=== PATIENT | male | born 1945 | race Caucasian/White ===

== ENCOUNTER 2024-02-13 16:26 | Inpatient (IN) | payer MEDICARE, SELFPAY ==
[2024-02-13] VITALS (73 sets, daily range): BP systolic 57–131; BP diastolic 46–95; BMI 19.2
[2024-02-13] MEDS: ADRENALIN 250 IV (13:20)
[2024-02-13 13:21] LABS: % Basophils 0.4 % (0-2); % Eosinophils 0.4 % (0-6); % Lymphocytes 10.3 % (20.5-51.1); % Monocytes 14.7 % (1.7-9.3); % Neutrophils 72.2 % (42.2-75.2); Absolute Immature Granulocytes 0.2 10^3/uL (0-0.05); Absolute Lymphocytes 0.8 10^3/uL (1.2-3.4); Absolute Monocytes 1.1 10^3/uL (0.1-0.6); Absolute Neutrophils 5.3 10^3/uL (1.4-6.5); Hematocrit 34.8 % (39.0-52.0); Hemoglobin 10.5 g/dL (13.0-18.0); Mean Corp Hgb Conc. 30.2 g/dL (33.0-37.0); Mean Corpuscular Hgb 24.9 pg (27.0-31.0); Mean Corpuscular Volume 82.7 fL (80.0-94.0); Mean Platelet Volume 10.7 fL (7.4-10.4); Nucleated Red Blood Cells % 0 % (-); Platelet Count 196 10^3/uL (130-400); Red Blood Cell Count 4.21 10^6/uL (4.70-6.10); Red Cell Dist. Width 15.6 % (11.5-14.5); White Blood Cell Count 7.4 10^3/uL (4.8-10.8)
--- NOTE | 2024-02-13 13:21 | CON.CAR ---
Consultation
Consultation Request
Date/Time Consultation Requested: 02-13-24, 1250pm
Date/Time Consultation Performed: 02-13-24, 1:10 PM
Requesting Provider: Caitie Prado
Performing Provider: Judd
Reason for Consultation: Cardiac arrest
Medical History
-
Chief Complaint: Cardiac arrest
History of Present Illness:
77 yo man with hx what sounds like end stage CHF with prior hx remote stents and ischemic cardiomyopathy. He was evaluated at [place] [facility] a few months ago for destination LVAD which he declined. tells me he had cath at [facility] [facility] 2 mo ago and told
everything 'stable'. He had a procedure about 10 days ago and was off OAT for that then for several days afterwards . He just started back on Eliquis 3 days ago He takes NO antiplt medications. His cardiologists ('viola obrien' and 'the
residential electrician') are based at [facility] and this is his first visit to .
reports he was significantly dyspneic over past few days- she says he has pulmonary fibrosis but does not use home O2. He did NOT complain of CP. Reportedly he walks no more than 5-10 feet before stopping with dyspnea. She was helping him out
of bathroom today and shortly thereafter he collapsed and became unconscious. No bystander CPR and she believes he was down for about 15 min before ambulance crew arrived. Ambulance crew estimates no more than 10min. He was given EPI one amp and
then had ROSC. No shocks although he has ICD and it is certainly possible he was shocked internally before ambulance arrived. Intubated on scene and brought to . Unresponsive on arrival and only given versed 1mg in the field.
BP initially 52/30 but after Epi one amp and start of drip BP 130/70. ECG shows A sense V paced rhythm. Sgarbossa criteria not met on in hospital ECG. Tracing in field less clear.
IMP:
PEA arrest in pt with end stage CHF/pulmonary fibrosis
Will need CT now to look for anoxic injury
consider PE study
I don't think immediate cath is appropriate in this pt with prolonged down time. He had been talking to his last few days about dying and it sounds like he was near the end of his life before this event
Rec
Admit to medicine
Plans depending on CT results
We will follow with you- need to request records from [facility] cardiologists/[facility]
ICD interrogation
Time for consult 56 min
Allergies / Home Medications
Allergy/AdvReac Type Severity Reaction Status Date / Time
ondansetron [From Zofran] Allergy Unknown Verified 02/13/24 13:16
Physical Exam
Vital Signs
Temp Pulse Resp BP Pulse Ox
97.3 F 93 15 57/46 97
02/13/24 13:07 02/13/24 13:07 02/13/24 13:07 02/13/24 13:10 02/13/24 13:07
[2024-02-13 13:28] LABS: B.E. 0.1 mmol/L; HCO3 25.4 mmol/L (21-28); PCO2 43 mmHg (35-48); PO2 312 mmHg (83-108); pH 7.38 (7.35-7.45)
--- NOTE | 2024-02-13 13:33 | PHANOTE ---
med rec note- patient came in as a code, came with home med list. patient has no ecw . some meds are from retail pharmacy but most meds come from mail order. unable to confirm meds with mail order as the request to talk to the patient but explain
the switch at the er to them but refuse to give med list. awaiting spouse to see if she knows any more information
[2024-02-13 13:37] LABS: Lactic Acid 3.6 mmol/L (0.7-2.0)
[2024-02-13 13:47] LABS: NT-proBNP 8060 pg/ml; Troponin I 0.396 ng/ml
[2024-02-13] MEDS: NSS 1000 IV ×2 (14:04→18:22)
[2024-02-13 14:19] LABS: Blood Urea Nitrogen 28 mg/dl (9-20); Carbon Dioxide 28 mmol/L (22-30); Chloride 99 mmol/L (98-107); Estimated Creatinine Clearance 52 ml/min; Glucose 227 mg/dl (70-99); Sodium 136 mmol/L (135-145); eGFR > 60.00
--- NOTE | 2024-02-13 14:21 | ED.GENMED ---
History of Present Illness
General
Chief Complaint: CODE
Source: patient, spouse and ambulance crew
Exam Limitations: clinical condition and altered mental status
Time Seen by Provider: 02/13/24 13:13
Nursing documentation reviewed up to this point in time: agreed with
History of Present Illness
History of Present Illness:
The patient is a 78-year-old man with a past medical history of CHF who was witnessed by his to become short of breath while walking. Patient went to sit down in the chair and became unresponsive. His called 911. When 911 arrived, he
was found pulseless and apneic. He was put on the monitor and showed to be in a PEA arrest. Patient was intubated and given 1 mg of epinephrine. Patient then regained pulses. Patient arrives unresponsive and intubated. Patient has bounding
pulses and a systolic blood pressure above 100 on arrival.
His reports that lately he has become slightly confused, and more short of breath, especially on exertion. She reports that he was due to see a congestive heart failure specialist this week. She reports that he seems to be declining. She
reports that she does not feel that he would have wanted to be intubated, however, she would like to keep him alive until his children are able to see him in the hospital.
Past History
Past History
ED Past Medical History: CHF
ED Past Surgical History: Cardiac (Pacemaker)
Social History
Tobacco: Other
Alcohol: Other
Drug: None
Personal:
Living: with family
Employment: Other
Family History
Family History: Other
Review of Systems
Review of Systems
Allergies reviewed?: Yes
All Other Systems: Not applicable (Limited due to patient being unresponsive)
Constitutional: Reports fatigue
EENT: Reports no symptoms
Respiratory: Reports trouble breathing
Phy Exam
Physical Exam
Physical Exam:
Physical Exam
General: Patient intubated, unresponsive, occasional blank, corneal reflex intact
Neck: supple. ET tube in place
Heart palpable femoral pulse
Lungs: Intubated and ventilated
Abdomen: Soft. Mildly distended
Neuro: Obtunded
Skin: no rash
Psychiatric: Appears to have been well-kept
Extremities: no edema.
Course
Orders/Labs/Results
Orders:
Orders
02/13/24 12:59
EKG [Electrocardiogram (*1)] Urgent
Reason for Study: Abnormal EKG
02/13/24 13:00
EKG- Treatment ONCE
02/13/24 13:02
CR Chest Portable - 1 View Urgent
Comment:
Reason For Exam: new intubation/post CODE
Reason Study Needs to be Portable: Patient Unstable
02/13/24 13:05
Basic Metabolic Panel Urgent
Complete Blood Count/With Diff Urgent
Lactic Acid Urgent
NT-proBNP Urgent
Troponin I Urgent
02/13/24 13:06
Arterial Blood Gas Urgent
%Oxygen/Room Air: 100%
Blood Culture Q30M
SHIVAM Source: Blood/Venous
Specimen Description:
02/13/24 13:17
EPINEPHrine 4 mg/250 mL NSS [Adrenalin] 4 mg in 250 ml .ROUTE .STK-MED
02/13/24 13:21
EPINEPHrine [Adrenalin 1 mg/10 ml] 1 mg .ROUTE .STK-MED ONE
02/13/24 13:28
CT Head W/o Iv Contrast Urgent
Comment:
Reason For Exam: post cardiac arrest
02/13/24 13:29
CT Chest Pe Study Urgent
Comment:
Reason For Exam: SOB, post-cardiac arrest
02/13/24 13:30
EPINEPHrine 4 mg/250 mL NSS [Adrenalin] 4 mg in 250 ml IV PER PROTOCOL
Initial dose in mcg/min, then titrate:: 5
Titrate to keep:: SBP > 90 mmHg
Titrate by mcg/min:: 0.5-1 mcg/min
Frequency of titrations (minutes):: 5
Maximum dose in mcg/min:: 10
Begin to taper infusion when:: Remained at goal for 4hrs
Taper by mcg/min:: 0.5-1 mcg/min
Frequency of taper (minutes) if patient maintains goal:: 30
Taper to off?: Yes
If infusion off & no longer maintaining goal:: Contact Provider
02/13/24 13:32
Blood Culture Q30M
SHIVAM Source: Blood/Venous
Specimen Description:
02/13/24 13:48
0.9% Sodium Chloride 1000 ml [Nss] 1,000 ml IV BOLUS
02/13/24 13:52
Consult Cardiology [CARDIOLOGY CONSULT] Urgent
Consulting Provider: Amrik Whaley
Was physician already notified: Yes
Reason for consult: post-cardiac arrest
Abnormal Lab Results
02/13/24 02/13/24
13:05 13:06
RBC 4.21 L 10^6/uL
(4.70-6.10)
Hgb 10.5 L g/dL
(13.0-18.0)
Hct 34.8 L %
(39.0-52.0)
MCH 24.9 L pg
(27.0-31.0)
MCHC 30.2 L g/dL
(33.0-37.0)
RDW 15.6 H %
(11.5-14.5)
MPV 10.7 H fL
(7.4-10.4)
Abs Immat Gran (auto) 0.2 H 10^3/uL
(0-0.05)
Absolute Lymphs (auto) 0.8 L 10^3/uL
(1.2-3.4)
Absolute Monos (auto) 1.1 H 10^3/uL
(0.1-0.6)
Immature Gran % 2.0 H %
(0-0.5)
Lymphocytes % 10.3 L %
(20.5-51.1)
Monocytes % 14.7 H %
(1.7-9.3)
pO2 312 H mmHg
(83-108)
ABG O2 Sat (Measured) 100.0 H %
(94-98)
BUN 28 H mg/dl
(9-20)
Glucose 227 H mg/dl
(70-99)
Lactic Acid 3.6 H mmol/L
(0.7-2.0)
Calcium 8.0 L mg/dl
(8.4-10.2)
Troponin I 0.396 H* ng/ml
02/13/24 13:05
02/13/24 13:05
Vital Signs
Initial and Last Documented VS:
Initial Vital Signs
Temp Pulse Resp Pulse Ox
97.3 F 93 15 97
02/13/24 13:07 02/13/24 13:07 02/13/24 13:07 02/13/24 13:07
Last Documented Vital Signs
Temp Pulse Resp BP Pulse Ox
97.3 F 83 16 97/50 100
02/13/24 13:07 02/13/24 14:25 02/13/24 14:25 02/13/24 14:25 02/13/24 14:25
MDM/Problems Addressed
Differential Diagnosis Includes:
Acute STEMI, acute non-STEMI, massive PE
MDM/Problems Addressed:
Patient presents postcardiac arrest and is now intubated
Chronic conditions affecting care: Cardiomyopathy
Acute Exacerbation and/or Progression of Chronic Illness:
Patient may have acute exacerbation of CHF and acute coronary disease
*Radiology
Radiology exam reviewed: preliminary read by ED provider (Chest x-ray read by me. ET tube good placement) and radiology read reviewed
*Pulse Oximetry
Patient hypoxic: no
*EKG
Interpreted by ED Provider?: Yes
Interpretation: abnormal
Rate: normal
Rhythm: other (paced)
[place]: left axis deviation
Interval: normal interval
QRS Pattern: wide non-specific
Ischemia: non-specific ST changes
*Face Cleaner Interpretation
Rate: normal
Interpretation: normal
Rhythm: sinus
*Critical Care Note
Total Time (30-74mins, 75-104mins- exclusive of procedures): 47 minutes
comment:
47 minutes critical care given to the patient including frequent reassessments of his heart rate, blood pressure, speaking to the patient's , speaking to Dr. Whaley, reviewing his CAT scan reports and lab results.
Data Reviewed
Source: spouse
Patient Management
Discussion with other providers: Other (Dr. Whaley arrived at the bedside to assess if there is a need to do an emergent cardiac cath)
Escalation/DeEscalation of care consider admission/obs:
Epinephrine drip started due to blood pressure dropping as low as systolics in the 50s. Epinephrine gave good improvements of blood pressure.
Patient will not be an emergent cardiac cath candidate given that he is not showing a STEMI.
ED Attending Note
-
Portions of this chart may have been created with voice recognition software.� Occasional wrong word or��sound alike� substitutions may have occurred due to the inherent limitations of voice recognition software.
Discharge Plan
Departure
Patient Disposition: Admit
Date of Disposition: 02/13/24
Time of Disposition: 13:50
Admit to: ICU
Presentation/result/management discussed w/ accepting MD/DO: Hospitalist
Patient with high blood pressure during this ER visit?: Yes
Condition: Critical
Covid-19: Not Applicable
Discharge Problem:
Cardiac arrest, Respiratory arrest
Prescriptions:
No Action
gabapentin 600 mg Tablet
600 mg PO BID
lorazepam 0.5 mg Tablet
0.5 mg PO Q6HPRN PRN (Reason: anxiety)
tamsulosin [Flomax] 0.4 mg Capsule
0.4 mg PO QPM
pantoprazole [Protonix] 40 mg Tablet,Delayed Release (Dr/Ec)
40 mg PO BID
sertraline 50 mg Tablet
150 mg PO QPM
ipratropium bromide 21 mcg (0.03 %) [place],Non-Aerosol
2 spray INTRANASAL BID
glipizide 5 mg Tablet
5 mg PO DAILY
buspirone 15 mg Tablet
15 mg PO BID
midodrine 10 mg Tablet
10 mg PO BID
ezetimibe [Zetia] 10 mg Tablet
5 mg PO DAILY
rosuvastatin [Crestor] 40 mg Tablet
40 mg PO MOTUWETHFR
zolpidem [Ambien CR] 12.5 mg Tablet,Ext Release Multiphase
12.5 mg PO HSPRN PRN (Reason: sleep)
cholecalciferol (vitamin D3) [Vitamin D3] 25 mcg (1,000 unit) Tablet
25 mcg PO DAILY
Eliquis 5 mg Tablet
5 mg PO BID
Jardiance 25 mg Tablet
25 mg PO DAILY
Ozempic 1 mg/dose (4 mg/3 mL) Pen Injector
1 mg SC QWEEK
Referrals:
Anolik,Keely, DO [Family Provider] -
Interventions
Interventions:
*Risk Screen - Suicide Last Done: 02/13/24 13:31
*General Assessment Last Done: 02/13/24 13:31
*Neglect/Abuse Screening Last Done: 02/13/24 13:31
ED- Fall Risk Assessment Last Done: 02/13/24 14:12
*ED COVID-19 Vaccine History Last Done: 02/13/24 13:31
ED- Cardiac Assessment Last Done: 02/13/24 13:47
ED- Pulmonary Assessment Last Done: 02/13/24 13:47
Discharge Date and Time
Print Language: MACEDONIAN
--- NOTE | 2024-02-13 14:39 | CON.INTV ---
Consultation
Consultation Request
Date/Time Consultation Requested: 02-13-24
Date/Time Consultation Performed: 02-13-24
Requesting Provider: Hospitalist Millie
Performing Provider: Dr Wong
Reason for Consultation: cardiac arrest
Medical History
-
Chief Complaint: cardiac arrest
History of Present Illness:
Mr Christophe Holley is a 78/M adm 02-12 after sustaining witnessed collapse and unconsciousness, no CPR for about 10 min per EMS, found in PEA, started CPR, given IV epinephrine x1, intubated, versed IV 1 mg, obtained ROSC.
At ER, unresponsive, BP 52/30, started epinephrine gtt. Seen by Cards at ER, no candidate for immediate medical laboratory technician activation due to prolonged down time.
Reportedly, patient had been talking to his last few days about dying and it sounds like he felt he was near the end of his life before this event. First adm
Seen at ICU, on ACV, weakly opens eyes and mouth upon command
H/o pulmonary fibrosis, not on home O2 or a-fibrotics
Andrews agent exposure during deployment at [place]
Per records review apparently not on O2 or BDs at home
Past Medical History
Past Medical History: Other (see A&P for PMH/PSH)
Social History
Drug: None
Personal:
Living: With Family
Employment: Retired
Environmental Exposures: agent orange during deployment in [place]
Family History
Family History: Unable to Obtain
Allergies / Home Medications
Allergies
Allergy/AdvReac Type Severity Reaction Status Date / Time
ondansetron [From Zofran] Allergy diarrhea Verified 02/13/24 14:27
and
diaphoresis
Home Medications
�Medication �Instructions �Recorded �Confirmed �Last Taken �Type
apixaban 5 mg tablet (Eliquis) 5 mg PO BID 02/13/24 Unknown History
buspirone 15 mg tablet 15 mg PO BID 02/13/24 02/13/24 Unknown History
cholecalciferol (vitamin D3) 25 25 mcg PO DAILY 02/13/24 Unknown History
mcg (1,000 unit) tablet (Vitamin
D3)
empagliflozin 25 mg tablet 25 mg PO DAILY 02/13/24 Unknown History
(Jardiance)
ezetimibe 10 mg tablet (Zetia) 5 mg PO DAILY 02/13/24 Unknown History
gabapentin 600 mg tablet 600 mg PO BID 02/13/24 Unknown History
glipizide 5 mg tablet 5 mg PO DAILY 02/13/24 Unknown History
ipratropium bromide 21 mcg (0.03 2 spray intranasal BID 02/13/24 Unknown History
%) nasal spray
lorazepam 0.5 mg tablet 0.5 mg PO Q6HPRN PRN anxiety 02/13/24 02/13/24 Unknown History
midodrine 10 mg tablet 10 mg PO BID 02/13/24 Unknown History
pantoprazole 40 mg tablet,delayed 40 mg PO BID 02/13/24 Unknown History
release (Protonix)
rosuvastatin 40 mg tablet (Crestor) 40 mg PO MOTUWETHFR 02/13/24 Unknown History
semaglutide 1 mg/dose (4 mg/3 mL) 1 mg SC QWEEK 02/13/24 Unknown History
subcutaneous pen injector (Ozempic)
sertraline 50 mg tablet 150 mg PO QPM 02/13/24 Unknown History
tamsulosin 0.4 mg capsule (Flomax) 0.4 mg PO QPM 02/13/24 Unknown History
zolpidem 12.5 mg tablet,extended 12.5 mg PO HSPRN PRN sleep 02/13/24 Unknown History
release,multiphase (Ambien CR)
Review of Systems
-
Unable to Obtain full review of systems at this time due to: Acuity and Patient Intubation
Vitals / Labs / Diagnostic Testing
Vital Signs
Temp Pulse Resp BP Pulse Ox
97.3 F 83 16 97/50 100
02/13/24 13:07 02/13/24 14:25 02/13/24 14:25 02/13/24 14:25 02/13/24 14:25
Lab Data
02/13/24 13:05
02/13/24 13:05
Laboratory Results
02/13/24
13:06
pH 7.38
pCO2 43
pO2 312 H
HCO3 25.4
O2 Delivery Level
Diagnostic Testing:
Physical Exam
-
HEENT: Normocephalic and Moist Mucous Membranes
Cardiovascular: Regular Rhythm, Murmur (n), Peripheral Edema (n) and JVD (n)
Respiratory: Clear and Non-Labored Respirations
GI: Soft and Non Distended
Neurology: Other (sedated by weakly open eyes and mouth upon command)
Skin: Warm
General: Respiratory Distress (n)
Assessment
-
Assessment:
Mr Christophe Holley is a 78/M adm 02-12 after sustaining witnessed collapse and unconsciousness, no CPR for about 10 min per EMS, found in PEA, started CPR, given IV epinephrine x1, intubated, versed IV 1 mg, obtained ROSC. At ER, unresponsive, BP
52/30, started epinephrine gtt. Seen by Cards at ER, no candidate for immediate medical laboratory technician activation due to prolonged down time. Reportedly, patient had been talking to his last few days about dying and it sounds like he felt he was near the end
of his life before this event. First adm
Impression:
PEA cardiac arrest 02-12
Estimated down time 10 min by EMS report
S/p IV epinephrine x1, CPR and intubation at field, obtained ROSC at field (not reported time up to achievement of ROSC)
Mild anemia
Mild lactacidemia
Elevated troponin and BNP
ABG with normal AB status and hyperoxia on fiO2 1.0
Conditions PROCESS IMPROVEMENT ENGINEER:
Reportedly end-stage CHF
ICM, remote h/o coronary stents
ICD
Declined destination LVAD 2 m PROCESS IMPROVEMENT ENGINEER ([facility]). Follows cards at [facility]
On apixaban
procedure 2 wks PROCESS IMPROVEMENT ENGINEER, off apixaban for procedure, then back on apixaban 3 d PROCESS IMPROVEMENT ENGINEER
Pulmonary fibrosis, not on home O2 or a-fibrotics
Andrews agent exposure during deployment at [place]
Plan:
Continue ACV
BARBIE#7.5
Settings: 16-500-5-1.0 (POx 98%)
Pk pr 26, Pl pr 12
Well synchronized to MV
Sedation, analgesia protocol
Daily SBT for weaning assessment
prn alb nebs
No indication for therapeutic hypothermia
Weakly opening eyes and mouth upon command
Continue NE, currently at 10 mcg/min
Chest CTA: ETT in place. No PE. Small partially loculated L PF with compressive atelectasis at L posterior base. Trace R PF. Mild subpleural pulm fibrotic changes. L chest ICD
Head CT s/c with no acute findings
Follow up CXR in AM
Seen by Cards at ER: no candidate for immediate medical laboratory technician activation due to prolonged down time
Continue IV heparin protocol
Blood cxs pending
Observing off atbs
Keep NPO for now x meds
Limited DNR
Overall prognosis guarded considering suspicion of end stage CHF
Critical care time: 35 min
D/w COMPRESSED AIR PILE DRIVER OPERATOR and ICU AXLE INSPECTOR
--- NOTE | 2024-02-13 14:53 | HPS.HSE ---
Addendum entered and electronically signed by Seema Parekh DO 02/13/24 16:56:
[facility] - [facility] [facility]
Original Note:
Family Physician
-
Family Physician: Keely Mitchell
Chief Complaint
-
cardiac arrest at home
History of Present Illness
The patient is a 78 yo male with PMH significant for end-stage CHF, agent orange exposure in [place] (Pulmonary fibrosis), ischemic cardiomyopathy, presents to the ED due to cardiac arrest. His witnessed him to be SOB, patient went to sit down
in the chair and then became unresponsive. She called 911 and he was found by EMS to be pulseless and apneic. He was found to be in PEA on the monitor. He was intubated by EMS and given 1 mg Epinephrine and regained pulses. He arrives to ED
unresponsive and intubated.
Per his and ED notes, he has been more confused recently, more SOB, and having SANCHEZ. He saw a CHF specialist this week and was evaluated for LVAD for which he declined, and the plan was for him to see another specialist at [facility]. He had prostate
procedure 1.5 weeks ago for prostate cancer, and was holding Eliquis for this reason, and restarted it night. He fell yesterday (walks w walker and was trying to go bathroom without walker). He told he was not feeling well today, and
choked while eating breakfast (was able to cough up food at that time). He went to sit in walker after eating, and became unresponsive.
ED txt:
Epi gtt stopped, heparin gtt, Levo started, IVF bolus x1, blood cxrs obtained, on ventilator
Medical History
Past Medical History
Past Medical History: Reports Arrhythmia (A.fib on Eliquis), Cancer (melanoma (pacemaker pocket), prostate ca), CHF (end-stage heart failure, seen at [facility] for LVAD (he declined), and was going to see someone at [facility] for an experimental), NIDDM
(Ozempic (may not be taking)) and Other (agent orange exposure in [place] (pulmonary fibrosis not on home O2))
Past Surgical History: Reports Cardiac (Pacemaker, defibrillator, CABG w stents)
Social History
Alcohol: None
Drug: None
Personal:
Living: With Family
Family History
Family History: Not pertinent
Allergies / Home Medications
Allergies reflects when Allergies were last updated in [facility].
Home Medications with original date entered in [facility]
Allergy/Medication List:
Allergies
Allergy/AdvReac Type Severity Reaction Status Date / Time
ondansetron [From Zofran] Allergy diarrhea Verified 02/13/24 14:27
and
diaphoresis
Home Medications
apixaban 5 mg tablet (Eliquis) 5 mg PO BID 02/13/24
buspirone 15 mg tablet 15 mg PO BID 02/13/24
cholecalciferol (vitamin D3) 25 mcg (1,000 unit) tablet (Vitamin D3) 25 mcg PO DAILY 02/13/24
empagliflozin 25 mg tablet (Jardiance) 25 mg PO DAILY 02/13/24
ezetimibe 10 mg tablet (Zetia) 5 mg PO DAILY 02/13/24
gabapentin 600 mg tablet 600 mg PO BID 02/13/24
glipizide 5 mg tablet 5 mg PO DAILY 02/13/24
ipratropium bromide 21 mcg (0.03 %) nasal spray 2 spray intranasal BID 02/13/24
lorazepam 0.5 mg tablet 0.5 mg PO Q6HPRN PRN anxiety 02/13/24
midodrine 10 mg tablet 10 mg PO BID 02/13/24
pantoprazole 40 mg tablet,delayed release (Protonix) 40 mg PO BID 02/13/24
rosuvastatin 40 mg tablet (Crestor) 40 mg PO MOTUWETHFR 02/13/24
semaglutide 1 mg/dose (4 mg/3 mL) subcutaneous pen injector (Ozempic) 1 mg SC QWEEK 02/13/24
sertraline 50 mg tablet 150 mg PO QPM 02/13/24
tamsulosin 0.4 mg capsule (Flomax) 0.4 mg PO QPM 02/13/24
zolpidem 12.5 mg tablet,extended release,multiphase (Ambien CR) 12.5 mg PO HSPRN PRN sleep 02/13/24
Review of Systems
-
Unable to obtain full review of systems at this time due to: Patient Intubation
Physical Exam
Vital Signs
Vital Signs
Temp Pulse Resp BP Pulse Ox
97.3 F 83 16 97/50 100
02/13/24 13:07 02/13/24 14:25 02/13/24 14:25 02/13/24 14:25 02/13/24 14:25
Physical Exam
General: Intubated
HEENT: NormoCephalic and Other (pupils minimally reactive & sluggish b/l, eyes open spontaneously to sounds, non-purposeful movement )
Respiratory: Clear, Non Labored Respirations and Other (ventilated)
Cardiac: S1/S2 and Irregular Rhythm
GI: Soft, Non Distended and Normal Bowel Sounds
Musculoskeletal: No Clubbing, No Cyanosis and No Edema
Neuro: Other
Psych: Calm
Laboratory Results
-
02/13/24 13:05
02/13/24 13:05
Laboratory Results
pH 7.38 (7.35-7.45) 02/13/24 13:06
pCO2 43 mmHg (35-48) 02/13/24 13:06
pO2 312 mmHg (83-108) H 02/13/24 13:06
HCO3 25.4 mmol/L (21-28) 02/13/24 13:06
Lactic Acid 3.6 mmol/L (0.7-2.0) H 02/13/24 13:05
Total Bilirubin Cancelled 02/13/24 13:05
AST Cancelled 02/13/24 13:05
ALT Cancelled 02/13/24 13:05
Alkaline Phosphatase Cancelled 02/13/24 13:05
Troponin I 0.396 ng/ml H* 02/13/24 13:05
Data Reviewed
-
CT Scan: Report Reviewed by me (IMPRESSION: 1). There is no pulmonary embolism 2). There is small partially loculated left-sided pleural effusion with associated compressive atelectasis at the posterior left lung base 3). There is mild subpleural
interstitial fibrosis bilaterally 4). Atherosclerosis 5). Mild cardiomegaly with )
Medical Tests (Nuc Med, Echo, EKG etc): Image Personally Visualized and interpreted and Report Reviewed by me (EKG atrial-sensed ventricular paced)
Impression/Plan
-
IMPRESSION:The patient is a 78 yo male with PMH significant for end-stage CHF, agent orange exposure in [place] (Pulmonary fibrosis), ischemic cardiomyopathy, presents to the ED due to cardiac arrest. His witnessed him to be SOB, patient went
to sit down in the chair and then became unresponsive. She called 911 and he was found by EMS to be pulseless and apneic. He was found to be in PEA on the monitor. He was intubated by EMS and given 1 mg Epinephrine and regained pulses. He arrives to
ED unresponsive and intubated.
Per his and ED notes, he has been more confused recently, more SOB, and having SANCHEZ. He saw a CHF specialist this week and was evaluated for LVAD for which he declined, and the plan was for him to see another specialist at [facility]. He had prostate
procedure 1.5 weeks ago for prostate cancer, and was holding Eliquis for this reason, and restarted it night. He fell yesterday (walks w walker and was trying to go bathroom without walker). He told he was not feeling well today, and
choked while eating breakfast (was able to cough up food at that time). He went to sit in walker after eating, and became unresponsive.
ED txt:
Epi gtt stopped, heparin gtt, Levo started, IVF bolus x1, blood cxrs obtained, on ventilator
#Acute cardiac arrest at home, PEA with return of pulses after 1 mg Epinephrine, likely multifactorial due to ischemic cardiomyopathy, end-stage CHF, possible hypoxic event, possible AICD shock at home though not interrogated as of yet; of note went
back on OAC night
-ICU admission
-Ventilatory support, respiratory supportive measures
-no indication for acute cardiac catheterization/intervention at this time per Cardiology interventionalist conversation
-will start Hep gtt in ED, continue per protocol
-change epi gtt to levo gtt
-interrogate AICD
-IVF 50 mL per hour while intubated x 1 bag
#Neuro status (down approximately 10-15 minutes with no CPR), opening eyes spontaneously to voice, pupils sluggish and minimally reactive, not responsive to commands
-CT head no acute stroke, no acute bleed, mild-moderate diffuse cortical and cerebellar atrophy
-Neuro consult placed for tomorrow
-monitor neuro status overnight closely
-Sedation not needed yet, start sedation if needed
#A.fib , rate controlled
-cont hep gtt, hold Eliquis
-monitor on tele
#DM, was on Ozempic (not currently)
-SSI for now
-monitor glucose closely
- insulin IV if needed
#Prostate cancer s/p procedure
#Melanoma/skin lesions, one over pacemaker pocket, seeing [facility] for procedure
#Agent orange exposure in [place],
#Pulmonary fibrosis, history of, not on home oxygen
#There is small partially loculated left-sided pleural effusion with associated compressive atelectasis at the posterior left lung base
-no evidence for acute pulmonary infection, hold off on abx at this time
-trend LA level
-low threshold to start IV Zosyn if signs/symptoms of aspiration
DVT proph-hep gtt
Limited DNR-pt is NO CPR , he is already intubated in the field
75 minutes of critical care time is spent on the care of this patient
[2024-02-13 17:00] LABS: INR 1.79; PT 20.6 Sec (11.4-14.6)
[2024-02-13] MEDS: HEPARIN 25000 UNITS/250 ML IV (17:00)
[2024-02-13 17:01] LABS: APTT 48.1 Sec (23.4-35.0)
[2024-02-13 17:10] LABS: Magnesium 1.9 mg/dl (1.6-2.3)
[2024-02-13] MEDS: NOVOLOG FLEXPEN-MODERATE RESISTANCE 3 UNITS SC (18:27)
--- NOTE | 2024-02-13 18:32 | PTCARENOTE ---
Rec'd pt at 1815 from ED. Pt with eyes open on vent, does not track or follow any commands. Pt stiff with rhythmic movements in extremities, but will pull away from stimuli-attempted to open pt's eyelids and pt pulled away and clenched eyes shut but
continued with rhythmic movements. Once pt undisturbed, movements stopped. CHG bath completed, labs drawn and sent. Sacrum and b/l heels red but blanchable, 3M and foams applied. Periarea and scrotum red. Condom cath applied, voided yellow urine
since applied. Heparin infusing at 750units/hr.
[2024-02-13 18:34] LABS: Glucose - Point of Care 205 mg/dl (70-99)
[2024-02-13 18:47] LABS: Lactic Acid 3.2 mmol/L (0.7-2.0)
[2024-02-13 19:19] LABS: Troponin I 0.542 ng/ml
--- NOTE | 2024-02-13 21:47 | PTCARENOTE ---
Rec'd care of patient at 1900. Patient intubated. No sedation. Opening eyes occasionally to stimuli. +Gag reflex. 100% paced on tele monitor. Vitals stable. MAP>65; Levophed not initiated at current time. #7.5 ett @24 cm. Repositioned to the left.
A/C 16/500/5/75%. Pulse ox 100%. RR 16 with exception of brief periods of restlessness due to stimulation. When stimulated, RR up to 20-30's and tremors present in b/l arm. Music turned on in background and reassurance provided. Voiding via CC. No
BM. Heparin gtt and IVF infusing through right wrist INT. LFA and LAC capped. Family at bedside. Emotional support provided. Plan of care discussed and questions answered.
[2024-02-13] MEDS: SUBLIMAZE 50 MCG IV (22:32)
[2024-02-13] MEDS: DIPRIVAN 100 IV (22:54)
[2024-02-13 23:21] LABS: APTT 77.3 Sec (23.4-35.0)
[2024-02-13 23:38] LABS: Troponin I 0.592 ng/ml
[2024-02-13 23:58] LABS: Triglycerides 87 mg/dl (10-149)
[2024-02-14] VITALS (98 sets, daily range): BP systolic 64–136; BP diastolic 14–118; PULSE 90–98; O2SAT 93; BMI 19.0
[2024-02-14 00:01] LABS: Glucose - Point of Care 101 mg/dl (70-99)
--- NOTE | 2024-02-14 00:31 | PTCARENOTE ---
Propofol gtt initiated at 2300 for RASS +2. Patient now resting comfortably. Synchronous with the vent. FiO2 decreased to 40%. Pulse ox 100%.
--- NOTE | 2024-02-14 04:09 | PTCARENOTE ---
Patient reassessed. Patient following commands. Nodding head appropriately and weak hand grasp upon request. Lung sounds coarse throughout. Thick white secretions suctioned from ett tube. ABG drawn by RT. AM labs due at 0500 with PTT.
[2024-02-14 04:18] LABS: B.E. -1.1 mmol/L; HCO3 21.2 mmol/L (21-28); O2 Saturation % 99.9 % (94-98); PCO2 26 mmHg (35-48); PO2 141 mmHg (83-108); pH 7.52 (7.35-7.45)
[2024-02-14 05:26] LABS: % Basophils 0.4 % (0-2); % Eosinophils 0.1 % (0-6); % Immature Granulocytes 0.6 % (0-0.5); % Lymphocytes 4.2 % (20.5-51.1); % Monocytes 13.2 % (1.7-9.3); % Neutrophils 81.5 % (42.2-75.2); Absolute Immature Granulocytes 0.1 10^3/uL (0-0.05); Absolute Lymphocytes 0.3 10^3/uL (1.2-3.4); Absolute Monocytes 1.1 10^3/uL (0.1-0.6); Absolute Neutrophils 6.5 10^3/uL (1.4-6.5); Hematocrit 29.6 % (39.0-52.0); Hemoglobin 9.4 g/dL (13.0-18.0); Mean Corp Hgb Conc. 31.8 g/dL (33.0-37.0); Mean Corpuscular Volume 78.7 fL (80.0-94.0); Mean Platelet Volume 11.3 fL (7.4-10.4); Nucleated Red Blood Cells % 0 % (-); Platelet Count 199 10^3/uL (130-400); Red Blood Cell Count 3.76 10^6/uL (4.70-6.10); Red Cell Dist. Width 15.8 % (11.5-14.5)
[2024-02-14 05:38] LABS: INR 1.68; PT 19.6 Sec (11.4-14.6)
[2024-02-14 05:39] LABS: APTT 65.2 Sec (23.4-35.0)
[2024-02-14 05:40] LABS: Glucose - Point of Care 92 mg/dl (70-99)
[2024-02-14 05:42] LABS: ALT (SGPT) 57 U/L (0-50); AST (SGOT) 57 U/L (17-59); Albumin 2.7 g/dl (3.5-5.0); Alkaline Phosphatase 80 U/L (38-126); Blood Urea Nitrogen 28 mg/dl (9-20); Calcium 8.5 mg/dl (8.4-10.2); Carbon Dioxide 24 mmol/L (22-30); Chloride 106 mmol/L (98-107); Estimated Creatinine Clearance 66 ml/min; Glucose 94 mg/dl (70-99); HDL Cholesterol 41 mg/dl; LDL Cholesterol, Calculated 29 mg/dl; Magnesium 1.9 mg/dl (1.6-2.3); Phosphorus 2.9 mg/dl (2.5-4.5); Potassium 3.8 mmol/L (3.5-5.1); Sodium 139 mmol/L (135-145); Total Bilirubin 0.7 mg/dl (0.2-1.3); Total Cholesterol 85 mg/dl (50-199); Triglyceride 75 mg/dl (10-149); Very Low Density Lipoprotein 15 mg/dl (0-30); eGFR > 60.00
--- NOTE | 2024-02-14 07:09 | W.PN.INTV ---
Addendum entered and electronically signed by Marilyn Eaton, DO 02/15/24 07:10:
Doing well, transferred to tele overnight
Will sign off at this time, please call with questions
Original Note:
Today's Communication / Plan
Recommendations
Off sedation/pressors, SBT
Will plan to extubate, ABG pending
Further cardiac management per team
Will likely need eventual GOC discussions
Assessment
-
Mr Christophe Holley is a 78/M adm 02-12 after sustaining witnessed collapse and unconsciousness, no CPR for about 10 min per EMS, found in PEA, started CPR, given IV epinephrine x1, intubated, versed IV 1 mg, obtained ROSC. At ER, unresponsive, BP
52/30, started epinephrine gtt. Seen by Cards at ER, no candidate for immediate director geophysical laboratory activation due to prolonged down time. Reportedly, patient had been talking to his last few days about dying and it sounds like he felt he was near the end
of his life before this event. First DH adm
Impression:
PEA cardiac arrest 02-12
Estimated down time 10 min by EMS report
S/p IV epinephrine x1, CPR and intubation at field, obtained ROSC at field (not reported time up to achievement of ROSC)
Mild anemia
Mild lactacidemia
Elevated troponin and BNP
ABG with normal AB status and hyperoxia on fiO2 1.0
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
Reportedly end-stage CHF
ICM, remote h/o coronary stents
ICD
Declined destination LVAD 2 m DRILL PRESSER ([facility]). Follows cards at [facility]
On apixaban
procedure 2 wks DRILL PRESSER, off apixaban for procedure, then back on apixaban 3 d DRILL PRESSER
Pulmonary fibrosis, not on home O2 or a-fibrotics
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
Plan:
Continue ACV
BARBIE#7.5
Settings: 16-500-5-1.0 (POx 98%)
Pk pr 26, Pl pr 12
Well synchronized to MV
Sedation, analgesia protocol
Daily SBT for weaning assessment
prn alb nebs
No indication for therapeutic hypothermia
Weakly opening eyes and mouth upon command
Off pressors
Chest CTA: ETT in place. No PE. Small partially loculated L PF with compressive atelectasis at L posterior base. Trace R PF. Mild subpleural pulm fibrotic changes. L chest ICD
Head CT s/c with no acute findings
CXR without acute findings
Seen by Cards at ER: no candidate for immediate director geophysical laboratory activation due to prolonged down time
Continue IV heparin protocol
No plans for cath
Blood cxs NTD
Observing off atbs
Keep NPO for now x meds
Limited DNR
Overall prognosis guarded considering suspicion of end stage CHF
-----
Critical Care time 35 mins -- The patient is admitted for acute critical illness for the treatment of vital organ failure and/or prevention of further life-threatening conditions. Total care includes time spent in review of history, physical exam,
medications, hemodynamic/ventilator parameters, laboratory data, imaging and discussion with house staff, pharmacy, respiratory therapy, calender feeder, and nursing.
Subjective Dataa
Subjective Data
Date of Service:
Date of Service: February 14, 2024
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
Subjective:
no acute events on, remains intubated
off sedation/pressors
following commands
Objective Data
Data Reviewed
Vital Signs / I&O / Oxygen:
Vital Signs
Temp Pulse Resp BP Pulse Ox
98.7 F 80 12 96/53 99
02/14/24 03:06 02/14/24 06:34 02/14/24 06:34 02/14/24 06:34 02/14/24 06:34
Intake and Output
02/13/24 02/14/24 02/15/24
06:59 06:59 06:59
Intake Total 9754.4 / 9754.4
Output Total 525 / 525
Balance 9229.4 / 9229.4
SaO2 [A/C] 100
SaO2 99
Physical Exam
General: Comfortable and Other (NAD)
HEENT: Normocephalic, Anicteric and Moist Mucous Membranes
Cardiovascular: S1-S2 and Regular Rhythm
Respiratory: Clear, Non-Labored Respirations and ET Tube
GI: Soft, Non Distended and Non Tender
Neurology: Awake, Alert, No Motor Deficits and Other (eyes open, following commands)
Skin: Warm, Dry and Good Color
Labs/Micro/Reports
Lab Data
02/14/24 05:08
02/14/24 05:08
Laboratory Results
02/13/24 02/13/24 02/13/24
13:06 16:38 17:57
PT 20.6 H
INR 1.79
APTT 48.1 H Cancelled
pH 7.38
pCO2 43
pO2 312 H
HCO3 25.4
O2 Delivery Level
02/13/24 02/14/24 02/14/24
23:02 04:09 05:08
PT 19.6 H
INR 1.68
APTT 77.3 H 65.2 H
pH 7.52 H
pCO2 26 L
pO2 141 H
HCO3 21.2
O2 Delivery Level
--- NOTE | 2024-02-14 08:00 | PTCARENOTE ---
Received pt awake,anxious,attempting to mouth words and remove ETT.Plan of care discussed and weaning and extubation process discussed.Emotional support given.Propofol off at 0715 for SBT.100% AV paced rhythm noted. IVF and Heparin gtt infusing.SBT
ongoing 5/5 40%.Coarse breath sounds throughout.POX 97%No BM.Voiding yellow urine via condom catheter.Skin integrity as documented.
[2024-02-14 08:50] LABS: B.E. -1.7 mmol/L; HCO3 22.1 mmol/L (21-28); PCO2 34 mmHg (35-48); PO2 174 mmHg (83-108); pH 7.42 (7.35-7.45)
--- NOTE | 2024-02-14 08:54 | CON.NEURO4 ---
Consultation - Neurology 4
-
CONSULTING PHYSICIAN: Dominic Rodríguez MD(Neurology)
REFERRING PHYSICIAN: ICU
DICTATED BY: Dominic Rodríguez
DATE/TIME OF REQUEST: 02/13/2024
DATE/TIME OF CONSULTATION: 02/14/2024
Reason for Consultation: AMS
History of Present Illness:
This is a 78 year old right handed male who has presented to the hospital with altered mental status.He has a past medical history significant for end stage CHF withischemic cardiomyopathy prior h/o stents . He was evaluated at [place] a few
months ago for destination LVAD which he declined. tells me he had cath at [place] 2 mo ago and told everything 'stable'. He had a procedure about 10 days ago and was off OAT for that then for several days afterwards . He just started back
on Eliquis 3 days ago He takes NO antiplt medications. His cardiologists ('viola obrien' and 'viola boykin') are based at [facility] and this is his first visit to .
reports he was significantly dyspneic over past few days- she says he has pulmonary fibrosis but does not use home O2. He did NOT complain of CP. Reportedly he walks no more than 5-10 feet before stopping with dyspnea. She was helping him out
of bathroom today and shortly thereafter he collapsed and became unconscious. No bystander CPR and she believes he was down for about 15 min before ambulance crew arrived. Ambulance crew estimates no more than 10min. He was given EPI one amp and
then had ROSC. No shocks although he has ICD and it is certainly possible he was shocked internally before ambulance arrived. Intubated on scene and brought to . Unresponsive on arrival and only given versed 1mg in the field.
BP initially 52/30 but after Epi one amp and start of drip BP 130/70. ECG shows A sense V paced rhythm.
- For stroke patients please mention last known well time.
- Describe associated symptoms, if any. Describe any treatment taken and intervention made.
- Describe the current status of symptoms.
- Describe if patient is compliant with current medications - name the medications and follow up with the physician.
- Describe if patient has had any similar symptoms in the past.
- For stroke patients, mention if patient has had a prior stroke and if there are any residual deficits.
- If the history has been obtained from sources other than the patient, mention 'this history has been contributed to by'
and name the source: family/medical record/usp/caregiver/nursing ect.
Past Medical History:
Surgical History:
Family History:
Social History:
Allergies: Zofran
Home Medications: Eliquis 5 mg twice daily Jardiance 25 mg daily BuSpar 15 mg twice daily vitamin D gabapentin 600 mg twice daily glipizide 5 mg Atrovent midodrine 10 mg twice daily Protonix 40 mg twice daily Crestor 40 mg daily Ozempic Zoloft
Flomax Ambien
Review of Symptoms:
Patient denies any fever, headache, chest pain, shortness of breath, GI or symptoms.
�Per the HPI.�All systems are reviewed negative except above.
�- Remove any of these problems that patient may have complained about in the HPI.
�- If patient is unresponsive, intubated or demented, say 'Per the HPI. I am unable to obtain a complete review of systems�because of patient's inability to provide history.'
Vital Signs:
The patient has a blood pressure of ( ) , heart rate ( ) , temperature ( ) , respiratory rate ( ) and a pulse ox of ( ) on
(room air / oxygen by nasal cannula / ventilator).
Physical Exam:
The patient is afebrile, heart sounds S1 and S2 are (regular / irregular), and chest is clear to auscultation bilaterally.
- If not clear, describe.
NIH Stroke Scale (if applicable):
I performed the NIH stroke scale on the patient on (date & time). The patient scored ( ) points on the NIH stroke scale assessment, which were assigned as follows:
Neurologic Examination:
The patient is awake, alert and oriented x person place and time. Speech is fluent with intact comprehension reading writing repetition. He is able to follow commands and answer questions appropriately. There is no aphasia or dysarthria.
On cranial nerve assessment, pupils are 3 mm bilateral, round and reactive to light and accommodation. Visual mojica are full. Extraocular movements are intact. Facial sensations are intact bilaterally
There is no facial asymmetry. Hearing is intact bilaterally to normal conversation volume. Tongue palate and uvula are midline. Sternocleidomastoid strengths are full bilaterally.
Motor strengths are 5/5 bilateral upper and lower extremities on medical research [place] scale. There is no pronator drift or involuntary movement noted.
Deep tendon reflexes are + bilateral upper and lower extremities and Babinski is absent bilaterally.
Sensations of pain, touch, temperature and vibration are intact and bilaterally symmetrical. There was no extinction noted on double simultaneous stimulation. Coordination is intact by finger to nose bilaterally.
Romberg's and gait could not be tested as the patient is intubated and bedbound
Lab Results:
Neuro Imaging:
Impression:
Mr. RENNY RAIN is a 78 year old M who has presented to the hospital with altered mental status following an episode of pulseless electrical activity and had to be resuscitated and intubated
Assessment:
Mild hypoxic ischemic encephalopathy resolved
Recommendations:
1. Continue ventilator support and may vean
2. EEG
3. Continue Eliquis
Discussed patient care with:
--- NOTE | 2024-02-14 09:10 | CON.NEURO4 ---
Consultation - Neurology 4
-
CONSULTING PHYSICIAN: Dominic Rodríguez MD(Neurology)
REFERRING PHYSICIAN: ICU
DICTATED BY: Dominic Rodríguez
DATE/TIME OF REQUEST: 02/13/2024
DATE/TIME OF CONSULTATION: 02/14/2024
Reason for Consultation: AMS
History of Present Illness:
This is a 78 year old right handed male who has presented to the hospital with AMS. He has a past medical history of end stage CHF and ischemic cardiomyopathy, who had stents. He was evaluated at [facility] earlier this year for LVAD which he
declined. mentioned he had cardiac cath at [facility] 2 mo ago and was informed stable coronary disease
He had a procedure about 10 days ago and was off Eliquis for several days afterwards . He just started back on Eliquis 3 days ago He takes NO antiplatelet medications. .
reports he was significantly dyspneic over past few days- she says he has pulmonary fibrosis but does not use home O2. He did NOT complain of chest pain. Reportedly he walks no more than 5-10 feet before stopping to catch his breath. She was
helping him out of bathroom yesterday and shortly thereafter he collapsed and became unconscious. No bystander CPR and she believes he was down for about 15 min before ambulance crew arrived. Ambulance crew estimates no more than 10min. He was given
EPI one amp and then had ROSC. No shocks although he has ICD and it is certainly possible he was shocked internally before ambulance arrived. Intubated on scene and brought to . Unresponsive on arrival and only given versed 1mg in the field. He
was intubated
BP initially 52/30 but after Epi one amp and start of drip BP 130/70. ECG shows A sense V paced rhythm
He woke up overnight and is able to follow commands. Is able to move all 4 extremities. He is breathing over the vent
Past Medical History: Ischemic cardiomyopathy congestive heart failure
Surgical History: Cardiac stents
Family History: Unknown
Social History: Lives at home with his does not smoke or use alcohol
Allergies: Zofran
Home Medications: Eliquis 5 mg twice daily Jardiance 25 mg daily BuSpar 15 mg twice daily vitamin D gabapentin 600 mg twice daily glipizide 5 mg Atrovent midodrine 10 mg twice daily Protonix 40 mg twice daily Crestor 40 mg daily Ozempic Zoloft
Flomax Ambien
Review of Symptoms:
Patient denies any fever, headache, chest pain, shortness of breath, GI or symptoms.
�Per the HPI.�All systems are reviewed negative except above.
�- Remove any of these problems that patient may have complained about in the HPI.
�- If patient is unresponsive, intubated or demented, say 'Per the HPI. I am unable to obtain a complete review of systems�because of patient's inability to provide history.'
Vital Signs:
The patient has a blood pressure of ( ) , heart rate ( ) , temperature ( ) , respiratory rate ( ) and a pulse ox of ( ) on
(room air / oxygen by nasal cannula / ventilator).
Physical Exam:
The patient is afebrile, heart sounds S1 and S2 are (regular / irregular), and chest is clear to auscultation bilaterally.
Vital Signs
Temp Pulse Resp BP Pulse Ox
37.4 C 98 30 96/53 100
02/14/24 07:00 02/14/24 09:10 02/14/24 09:10 02/14/24 06:34 02/14/24 09:10
Lab Results
02/14/24 05:08
02/14/24 05:08
PT 19.6 Sec (11.4-14.6) H 02/14/24 05:08
INR 1.68 02/14/24 05:08
APTT 65.2 Sec (23.4-35.0) H 02/14/24 05:08
Sodium 139 mmol/L (135-145) 02/14/24 05:08
Potassium 3.8 mmol/L (3.5-5.1) 02/14/24 05:08
BUN 28 mg/dl (9-20) H 02/14/24 05:08
Glucose 94 mg/dl (70-99) 02/14/24 05:08
Calcium 8.5 mg/dl (8.4-10.2) 02/14/24 05:08
Phosphorus 2.9 mg/dl (2.5-4.5) 02/14/24 05:08
Anp-C-Knvsspupctc Pept 8060 pg/ml 02/13/24 13:05
LDL Cholesterol, Calc 29 mg/dl 02/14/24 05:08
Neurologic Examination:
The patient is awake, alert and oriented x person place and time. Speech is fluent with intact comprehension reading writing repetition. He is able to follow commands and answer questions appropriately. There is no aphasia or dysarthria.
On cranial nerve assessment, pupils are 3 mm bilateral, round and reactive to light and accommodation. Visual mojica are full. Extraocular movements are intact. Facial sensations are intact bilaterally
There is no facial asymmetry. Hearing is intact bilaterally to normal conversation volume. Tongue palate and uvula are midline. Sternocleidomastoid strengths are full bilaterally.
Motor strengths are 5/5 bilateral upper and lower extremities on medical research [place] scale. There is no pronator drift or involuntary movement noted.
Deep tendon reflexes are + bilateral upper and lower extremities and Babinski is absent bilaterally.
Sensations of pain, touch, temperature and vibration are intact and bilaterally symmetrical. There was no extinction noted on double simultaneous stimulation. Coordination is intact by finger to nose bilaterally.
Romberg's and gait could not be tested as the patient is intubated and bedbound
Lab Results:
Neuro Imaging: CT head shows diffuse cortical atrophy mild ventriculomegaly and small vessel disease
Impression:
Mr. RENNY RAIN is a 78 year old M who has presented to the hospital with altered mental status following an episode of pulseless electrical activity and had to be resuscitated and intubated
Assessment:
Mild hypoxic ischemic encephalopathy resolved
Recommendations:
1. Continue ventilator support and may vean
2. EEG
3. Continue Eliquis
Discussed patient care with:
Total Time Spent with Patient (in minutes): 30 minutes
Vital Signs and Labs
-
Vital Signs and Labs:
Vital Signs
Temp Pulse Resp BP Pulse Ox
37.4 C 98 30 96/53 100
02/14/24 07:00 02/14/24 09:10 02/14/24 09:10 02/14/24 06:34 02/14/24 09:10
Lab Results
02/14/24 05:08
02/14/24 05:08
PT 19.6 Sec (11.4-14.6) H 02/14/24 05:08
INR 1.68 02/14/24 05:08
APTT 65.2 Sec (23.4-35.0) H 02/14/24 05:08
Sodium 139 mmol/L (135-145) 02/14/24 05:08
Potassium 3.8 mmol/L (3.5-5.1) 02/14/24 05:08
BUN 28 mg/dl (9-20) H 02/14/24 05:08
Glucose 94 mg/dl (70-99) 02/14/24 05:08
Calcium 8.5 mg/dl (8.4-10.2) 02/14/24 05:08
Phosphorus 2.9 mg/dl (2.5-4.5) 02/14/24 05:08
Whs-P-Eglaxzqqlbp Pept 8060 pg/ml 02/13/24 13:05
LDL Cholesterol, Calc 29 mg/dl 02/14/24 05:08
[2024-02-14 09:24] LABS: Glycohemoglobin (HgbA1c) 7.5 % (4.0-5.6)
--- NOTE | 2024-02-14 09:39 | W.PN.HOSP.TC ---
Today's Communication/Plan
-
Restart medication
Intermittent ICD
Check echocardiogram
Follow telemetry
Assessment / Plan
Assessment / Plan
arrest. His witnessed him to be SOB, patient went to sit down in the chair and then became unresponsive. She called 911 and he was found by EMS to be pulseless and apneic. He was found to be in PEA on the monitor. He was intubated by EMS and
given 1 mg Epinephrine and regained pulses. He arrives to ED unresponsive and intubated.
Per his and ED notes, he has been more confused recently, more SOB, and having SANCHEZ. He saw a CHF specialist this week and was evaluated for LVAD for which he declined, and the plan was for him to see another specialist at [place]. He had prostate
procedure 1.5 weeks ago for prostate cancer, and was holding Eliquis for this reason, and restarted it night. He fell yesterday (walks w walker and was trying to go bathroom without walker). He told he was not feeling well today, and
choked while eating breakfast (was able to cough up food at that time). He went to sit in walker after eating, and became unresponsive.
ED txt:
Epi gtt stopped, heparin gtt, Levo started, IVF bolus x1, blood cxrs obtained, on ventilator
#Acute cardiac arrest at home, PEA with return of pulses after 1 mg Epinephrine, likely multifactorial due to ischemic cardiomyopathy, end-stage CHF, possible hypoxic event, possible AICD shock at home though not interrogated as of yet; of note went
back on OAC night
#Intubated on scene.
-no indication for acute cardiac catheterization/intervention at this time per Cardiology interventionalist conversation
-started on Hep gtt in ED, continue per protocol
-Now extubated to MT
-Off of vasopressors
-interrogate AICD
- No tachyarrhythmias
-Neurological improved-alert and oriented. Voicing no headache. No obvious focal neurological deficit.
-CT head no acute stroke, no acute bleed, mild-moderate diffuse cortical and cerebellar atrophy
#A.fib , rate controlled
-cont hep gtt, hold Eliquis
-monitor on tele
#DM, was on Ozempic (not currently)
-SSI for now
-monitor glucose closely
- insulin IV if needed
#Prostate cancer s/p procedure
#Melanoma/skin lesions, one over pacemaker pocket, seeing OP Plastics for procedure
#Agent orange exposure in [place],
#Pulmonary fibrosis, history of, not on home oxygen
#There is small partially loculated left-sided pleural effusion with associated compressive atelectasis at the posterior left lung base
-no evidence for acute pulmonary infection, hold off on abx at this time
-trend LA level
-low threshold to start IV Zosyn if signs/symptoms of aspiration
DVT proph-hep gtt
Limited DNR-pt is NO CPR
DW and son at bedside. DW Cardiology .
Start on a diet.
Resume oral medications.
Total time spent on today's encounter was 52 minutes which included time spent in counseling the patient/family regarding diagnosis and treatment plan as listed above, goals of care, and symptom management. Case was discussed with nursing staff,
specialists . All labs and imaging personally reviewed by me. Remainder the time spent in detailed review of previous records, lab data, imaging, and other medical provider documentation.
Anticipated Discharge: > 48 hours
Subjective/Interval History
-
Date of Service: February 14, 2024
Patient this morning alert and oriented to self and person. He initially thought it was [facility]. He normally goes to [facility] for his care. This is his first visit to [facility].
He is oblivious to the events yesterday. He did not know that he passed out yesterday or how he came here. He was noticing some shortness of breath but no chest pains. He denies any headache. No nausea vomiting currently.
Objective Data
-
Labs:
Laboratory Results
02/13/24 02/14/24 02/14/24
23:02 04:09 05:08
WBC 8.0
Hgb 9.4 L
Hct 29.6 L
Plt Count 199
PT 19.6 H
INR 1.68
APTT 77.3 H 65.2 H
HCO3 21.2
Sodium 139
Potassium 3.8
Chloride 106
Carbon Dioxide 24
BUN 28 H
Creatinine 0.8
Glucose 94
Calcium 8.5
Total Bilirubin 0.7
AST 57
ALT 57 H
Alkaline Phosphatase 80
02/14/24 02/14/24
08:33 12:15
WBC
Hgb
Hct
Plt Count
PT
INR
APTT Pending
HCO3 22.1
Sodium
Potassium
Chloride
Carbon Dioxide
BUN
Creatinine
Glucose
Calcium
Total Bilirubin
AST
ALT
Alkaline Phosphatase
Vital Signs:
Vital Signs
Temp Pulse Resp BP Pulse Ox
99.4 F 98 30 96/53 100
02/14/24 07:00 02/14/24 09:10 02/14/24 09:10 02/14/24 06:34 02/14/24 09:10
I&O
02/13/24 02/14/24 02/15/24
06:59 06:59 06:59
Intake Total 9754.4 / 9754.4
Output Total 525 / 525
Balance 9229.4 / 9229.4
Review of Systems
-
Constitutional: Reports Weakness (Was getting weaker at home)
Respiratory: Reports Trouble Breathing
Cardiac: Denies Chest Pain or Palpitations
Abdomen/GI: Denies Abdominal Pain, Nausea or Vomiting
Neuro: Denies Dizzy
Physical Exam
-
General: Comfortable
HEENT: Moist Mucous Membranes
Respiratory: Crackles (Bibasilar); Negative Wheezes
Cardiac: Regular Rhythm and S1/S2
GI: Soft, Nontender, Nondistended and Normal Bowel Sounds
Neuro: AO x 3 and No Motor Deficits; Negative Tremors, Slurred Speech or Facial Droop
Psych: Calm; Negative Confused
Data Reviewed
-
Labs: Labs Reviewed by me
--- NOTE | 2024-02-14 10:56 | W.PN.CD ---
Today's Communication / Plan
-
resume midodrine
given lasix 20mg IV x1 and assess response
request op cardiology records
Impression / Plan
-
Presentation:
77 yo man with hx with end stage CHF with prior hx remote stents,ischemic cardiomyopathy, recent eval for destination LVAD and he declined, AF on eliquis, Pulmonary Fibrosis, prostate CA, and what sounds like FTT over the last several years. He
had an 'arrest' down for 10 minutes before CPR then EMS for another ~5 minutes before ROSC.
Cardiac arrest: current awake and alert with good orientation, after being 'down' for ~15 minutes? wonder if he was just very hypotensive with poor palp pulses, regardless he is awake now without any CP.
-will not offer cath at this time
-suspect hypoxia contributing
-no pe, trace effusions
-will review interrogation with ED
-update echo
Ischemic CMY with BiV ICD;
-will request recent records
-Not on very much GDMT, guessing due to low bp--on chronic Midodrine
-will request records
CAD:
-no cp
-don't suspect acute coronary event
-trop slightly up in the setting of 'arrest'.
PAF:
-in sinus with biv pacing currently
-recent eliquis hold now on a heparin gtt until plan fully sorted
HF?rEF:
-will update echo
-on exam he has cachexia
-suspect he could have some mild hypervolemia, bp is low
-will resume his midodrine and give a dose of Fursoemide to see if helps with dyspnea his main complaint.
We had a discussion about his code status it is DNR.
Total time in his Critical care today was [address] Dr Colin, Dr lopez.
Physical Exam
Vital Signs/Labs
Vital Signs
Temp Pulse Resp BP Pulse Ox
99.4 F 98 30 96/53 100
02/14/24 07:00 02/14/24 09:10 02/14/24 09:10 02/14/24 06:34 02/14/24 09:10
02/13/24 02/14/24 02/15/24
06:59 06:59 06:59
Actual Weight 61.9 kg
02/14/24 05:08
02/14/24 05:08
PT 19.6 Sec (11.4-14.6) H 02/14/24 05:08
INR 1.68 02/14/24 05:08
APTT 65.2 Sec (23.4-35.0) H 02/14/24 05:08
Magnesium 1.9 mg/dl (1.6-2.3) 02/14/24 05:08
Triglycerides 75 mg/dl (10-149) 02/14/24 05:08
LDL Cholesterol, Calc 29 mg/dl 02/14/24 05:08
VLDL Cholesterol, Calc 15 mg/dl (0-30) 02/14/24 05:08
HDL Cholesterol 41 mg/dl 02/14/24 05:08
TSH 2.10 uIU/ml (0.47-4.68) 02/13/24 16:38
02/13/24
13:05
Zfq-R-Oiwwugpzkgi Pept 8060
LAB Results
02/13/24 02/13/24 02/13/24
13:05 18:27 23:02
Troponin I 0.396 H* 0.542 H* D 0.592 H*
Physical Exam
Constitutional: Other (appears chronically ill)
Cardiovascular: Rhythm & rate is regular, Pedal edema is absent and S1S2 is normal
Respiratory: Wheeze Absent and Crackles Present (bibasilar rales)
Neuro/Psych: AO x 3
Data Reviewed
-
Date of Service: February 14, 2024
EKG: Other (sinus with pacing)
[2024-02-14] MEDS: ProAmatine 10 MG PO ×3 (11:27→17:57)
[2024-02-14] MEDS: PROTONIX 40 MG PO (11:27)
[2024-02-14] MEDS: BUSPAR 15 MG PO ×2 (11:27→21:36)
[2024-02-14] MEDS: LASIX 20 MG IV (11:28)
[2024-02-14] MEDS: JARDIANCE 25 MG PO (11:28)
[2024-02-14] MEDS: CRESTOR 40 MG PO (11:30)
[2024-02-14 12:02] LABS: APTT 69.8 Sec (23.4-35.0)
--- NOTE | 2024-02-14 12:47 | PTCARENOTE ---
Pt assessed.Speech is mostly appropriate.Pt is sometimes confused to exact location and month.Assisted OOB to chair with PT/OT.Denies pain.Heparin gtt increased to 950 units/hr as per protocol.IVF capped as per MD order.Pt's and family at
bedside.Plan of care discussed.
--- NOTE | 2024-02-14 12:51 | PTOTSP ---
Dysphagia Evaluation
Patient is at an elevated risk for acute dysphagia given recent intubation with extubation less than 24 hours ago with subsequent dysphonia. Family reported a choking episode prior to admission with solids 30-60 minutes before unresponsive episode.
Objective assessment of swallowing warranted via video swallow study.
Recommend:
1. IDDSI Level 4 Puree, IDDSI Level 0 Thin Liquids
2. Medications - as best tolerated
3. Full supervision/assistance
4. Strategies: upright to 90 degrees, small single sips/bites, slow rate, remain upright for 30 minutes after PO intake
5. Video swallow study with esophageal sweep
6. Cognitive linguistic evaluation as able/appropriate given reported prolonged down time prior to CPR initiation and acute STM difficulty.
[2024-02-14 13:04] LABS: Glucose - Point of Care 120 mg/dl (70-99)
--- NOTE | 2024-02-14 13:32 | CM ---
CM following re: discharge planning.
Discussed in rounds, reviewed pt's chart, met with pt. pt's spouse , son and daughter in law at bedside.
Pt is a 78 year old male, admitted with primary dx of Cardiac arrest. Per Rounds meeting, pt intubated at home by EMS, successfully extubated today, PT, OT, ST following.
Pt reports he lives with spouse in a 2SH, 2 steps to enter, has 3 supportive children. pt described himself as independent in all areas [employer]. No DME, or SNF history. Per spouse pt had [facility] services in the past.
PT, OT and ST evaluations noted - SNF level of care recommended. Both pt and his family are aware, expressed their agreement with recommendation. A list OF SNFs provided. Following SN[facility]: [facility], [facility] or [facility].
A referral to above SNFs made. Awaiting for determination.
PCP: Keely Mitchell
Pharmacy: [facility]
D/C plan: preferred SNF.
CM will follow to assist pt with discharge to a preferred SNF.
--- NOTE | 2024-02-14 14:36 | PTCARENOTE ---
Pt assisted back to bed with 2 person assist.Was oob in the chair x 2.5 hours.Pt c/o having to pee although he has been voiding via condom catheter.
Bladder scanned for 510 ml.Attempted to straight cath pt and was unable to pass catheter.Pt's states that pt has required Urologist to insert catheter in the past hospitalizations.Dr Colin made aware.
[2024-02-14] MEDS: NOVOLOG FLEXPEN-MODERATE RESISTANCE 1 UNITS SC (16:55)
[2024-02-14 17:05] LABS: Glucose - Point of Care 193 mg/dl (70-99)
--- NOTE | 2024-02-14 17:51 | W.PN.URO.CBU ---
Today's Communication / Plan
-
leave myers
Assessment / Plan
-
pt with probaable edema and possible false passage of urethra i sed filifoms and followrs and dilate 20 fr th 20 fr coud easily passed and dtained 300cc cloud[facility] Suggest removal once mbulatory
Diagnosis
-
Date of Service: February 14, 2024
-
Patient Diagnosis:
Urnary retentionwith difficult myers in pt 1 week s/p aquablation for salvage of prostae cancer with psa ricsig post xrt . No voiding problema s ost aqablatio myers out 1 week ago
Post Op Day:
Subjective
-
cannot void
Objective
-
Vital Signs
Temp Pulse Resp BP Pulse Ox
98.7 F 88 27 128/76 92
02/14/24 15:00 02/14/24 12:30 02/14/24 12:30 02/14/24 12:30 02/14/24 11:32
Intake and Output
02/13/24 02/14/24 02/15/24
06:59 06:59 06:59
Intake Total 9754.4 / 9820.4 807.5 / 807.5
Output Total 525 / 525 500 / 500
Balance 9229.4 / 9295.4 307.5 / 307.5
Intake:
Oral fluids 480 / 480
IV fluids (Total) 9754.4 / 9820.4 327.5 / 327.5
Heparin 9100 / 9108.5 70.0 / 70.0
NS 600 / 650 250 / 250
Prop 54.4 / 61.9 7.5 / 7.5
Output:
Urine, Voided 525 / 525 500 / 500
Laboratory Results
02/14/24 05:08
02/14/24 05:08
Review of Systems
-
: Difficulty Voiding
Physical Exam
-
General - well developed, well nourished, no acute distress
Chest - clear bilaterally
Abdomen - soft, non-tender, positive bowel sounds, no CVAT, no incisional pain or distention
Genitalia - normal
Rectal - normal
Skin - warm & dry with no rash
Neuro - AOx3, no motor deficits
Extremities - no clubbing, no cyanosis, no edema
Incision - clean, dry
Dressing - clean, dry, intact
Care Review
Data Reviewed
Discussed with: Hospitalist, Nursing and Family
Total Time Spent with Patient (in minutes): 1 hour and difficult myers filifom and followrs
[2024-02-14] MEDS: LIDOCAINE URO-JET 2% 1 SYRINGE TOPICAL ×2 (17:55→17:56)
[2024-02-14] MEDS: ZOLOFT 150 MG PO (17:57)
[2024-02-14 18:54] LABS: APTT 74.1 Sec (23.4-35.0)
[2024-02-14] MEDS: NEURONTIN 600 MG PO (21:35)
[2024-02-14] MEDS: AMBIEN 10 MG PO (21:36)
[2024-02-14] MEDS: ATIVAN 0.5 MG PO (21:36)
[2024-02-14] MEDS: HEPARIN 25000 UNITS/250 ML IV (21:46)
[2024-02-14 22:39] LABS: Troponin I 0.227 ng/ml
[2024-02-15] VITALS (17 sets, daily range): BP systolic 83–115; BP diastolic 50–68; PULSE 81–85; O2SAT 100; BMI 19.3
[2024-02-15 00:58] LABS: APTT 88.2 Sec (23.4-35.0)
[2024-02-15 02:05] LABS: Glucose - Point of Care 141 mg/dl (70-99)
[2024-02-15 04:51] LABS: Hematocrit 35.3 % (39.0-52.0); Hemoglobin 10.5 g/dL (13.0-18.0); Mean Corp Hgb Conc. 29.7 g/dL (33.0-37.0); Mean Corpuscular Hgb 24.8 pg (27.0-31.0); Mean Corpuscular Volume 83.5 fL (80.0-94.0); Mean Platelet Volume 10.8 fL (7.4-10.4); Platelet Count 209 10^3/uL (130-400); Red Blood Cell Count 4.23 10^6/uL (4.70-6.10); Red Cell Dist. Width 16.1 % (11.5-14.5); White Blood Cell Count 12.1 10^3/uL (4.8-10.8)
[2024-02-15 05:02] LABS: APTT 78.5 Sec (23.4-35.0)
[2024-02-15 05:19] LABS: Blood Urea Nitrogen 32 mg/dl (9-20); Calcium 8.8 mg/dl (8.4-10.2); Carbon Dioxide 31 mmol/L (22-30); Chloride 103 mmol/L (98-107); Estimated Creatinine Clearance 76 ml/min; Glucose 132 mg/dl (70-99); Potassium 3.9 mmol/L (3.5-5.1); Sodium 140 mmol/L (135-145); eGFR > 60.00
[2024-02-15 07:26] LABS: Glucose - Point of Care 136 mg/dl (70-99)
--- NOTE | 2024-02-15 07:55 | W.PN.NEURO.1 ---
Today's Communication / Plan
-
-Check EEG
-Monitor clinically
-Minimize sedating medications
-Supportive care
-Cardiac telemetry
-Do not feel he would require further brain imaging
Will follow as needed call with questions and concerns
Neuro Assessment/Plan
Assessment
78 year old man with history of advanced CHF, ischemic cardiomyopathy, CAD presented after being found by having collapsed and become unconscious, down for about 15 minutes and then EMR arrived, had ROSC, no shocks, intubated.
Patient was able to show signs of purposeful brain activity yesterday and was extubated.
CT head non contrast on admission was unremarkable
Today 02/14 patient has no memory recall of the recent event but is shows no evidence of aphasia, vision loss, is asking appropriate questions and can perform simple calculations and have appropriate conversation
Reassuring mental status overall, is expected to have amnesia for the events.
Expected that patient may have memory loss and some cognitive difficulties as likely an element of toxic metabolic encephalopathy, doubt he has had a serious anoxic brain injury
Subjective/Objective
Subjective Data
Date of Service: February 15, 2024
Patient is awake and alert, asking what happened to him, conversational
Objective Data
Vital Signs
Temp Pulse Resp BP Pulse Ox
97.6 F 80 12 96/57 94
02/15/24 07:29 02/15/24 06:30 02/15/24 06:30 02/15/24 06:00 02/14/24 21:00
Lab Results
02/15/24 04:35
02/15/24 04:35
PT 19.6 Sec (11.4-14.6) H 02/14/24 05:08
INR 1.68 02/14/24 05:08
APTT 78.5 Sec (23.4-35.0) H 02/15/24 04:35
Sodium 140 mmol/L (135-145) 02/15/24 04:35
Potassium 3.9 mmol/L (3.5-5.1) 02/15/24 04:35
BUN 32 mg/dl (9-20) H 02/15/24 04:35
Glucose 132 mg/dl (70-99) H 02/15/24 04:35
Calcium 8.8 mg/dl (8.4-10.2) 02/15/24 04:35
Phosphorus 2.9 mg/dl (2.5-4.5) 02/14/24 05:08
Dxc-Y-Ibjrdgerkqs Pept 8060 pg/ml 02/13/24 13:05
LDL Cholesterol, Calc 29 mg/dl 02/14/24 05:08
Patient Allergies
ondansetron [From Zofran] Allergy (Verified 02/13/24 14:27)
diarrhea and diaphoresis
Review of Systems
-
History Source: Patient
All other systems: Reviewed and negative
Constitutional: No Symptoms
EENT: No Symptoms Reported
Respiratory: No Symptoms
Cardiac: No Symptoms
Abdomen/GI: No Symptoms
Genitourinary: No Symptoms
Musculoskeletal: No Symptoms
Skin: No Symptoms
Neuro: See existing Neuro Note
Endocrine: No Symptoms
Hematologic / Lymphatic: No Symptoms
Allergy / Immunology: No Symptoms
Physical Exam
-
General: Comfortable
Eyes: No Ptosis
HEENT: Normocephalic
Neck: No Bruits Bilaterally
Respiratory: Clear to Auscultation
Cardiac: Regular Rhythm
GI: Normal Bowel Sounds
Skin: Unremarkable
Extremities: No Clubbing
Psych: Confused; Negative Agitated
Extended Neurological Exam
Attention Span & Concentration: Awake, Alert, Interactive and Other (Knows his address, 's name, can do simple calculations, obeys multi step commmands, conversational asking appropriate questions)
Memory: Reduced and Other (No memory recall of recent events)
Speech: Negative Expressive Aphasia, Receptive Aphasia or Dysarthric
Cranial Nerve II: Left Eye: Pupillary Reactivity Unremarkable, Pupillary Size Unremarkable and Visual Carver Intact
Cranial Nerve II: Right Eye: Pupillary Reactivity Unremarkable, Pupillary Size Unremarkable and Visual Carver Intact
Cranial Nerves III, IV, : Extraocular Movement: Extraocular Movement Full in all Directions
Muscle Strength, Overall: Full Throughout
Pronator Drift: No Drift in Upper Extremities
Data Reviewed
-
CT Head: Report Reviewed and Image Reviewed
EEG: Ordered and Pending
--- NOTE | 2024-02-15 07:55 | EEG.RPT ---
Electroencephalogram Report
Recording
Date of EE02/15/24
Length of EEG recordin minutes
Patient Status: Inpatient
Recording Conditions: Awake and Drowsy
Hyperventilation Performed: No
Photic Stimulation Performed: Yes
Report
LESS THAN 1 HOUR EEG REPORT
LESS THAN 1 HOUR EEG INTERPRETATION:
Mildly abnormal EEG for age due to diffuse bihemispheric slowing
CLINICAL CORRELATION:
This study was suggestive of diffuse cortical dysfunction without focal abnormality. No seizures were recorded.
Clinical correlation is advised.
METHODS:
A 21 channel digitized electroencephalogram (EEG) was performed at the bedside. The 10/20 international system of electrode placement was used with ECG and lateral/vertical eye movements recorded. Persyst QEEG monitoring was performed. Duration 29
minutes.
QUALITY OF STUDY:
Good
ELECTROENCEPHALOGRAPHER IMPRESSION(S):
Background
Medium amplitude background of predominantly theta and delta frequencies.
No normal posterior dominant alpha rhythm was seen.
There were no significant asymmetries of background activity noted.
Sleep
Drowsiness present
Photic Stimulation
Failed to activate the record.
ECG
Normal sinus rhythm
--- NOTE | 2024-02-15 08:00 | PTCARENOTE ---
Received pt sleeping.Awakens to voice.Speech is appropriate.Pt is forgetful short term and asks about pre hospital event.+SINGH.c/o chest discomfort with repositioning.100% AV paced noted.Heparin gtt infusing.POX 94% on RA.Decreased breath sounds
throughout.No c/o SOB.Appetite good.Complete feed .Smear BM.Damon draining yellow urine.Left forearm skin tear noted.Plan of care discussed.
[2024-02-15] MEDS: NEURONTIN 600 MG PO ×2 (08:07→20:27)
[2024-02-15] MEDS: FLOMAX 0.400000000000000022 MG PO (08:07)
[2024-02-15] MEDS: ProAmatine 10 MG PO ×3 (08:08→17:54)
[2024-02-15] MEDS: ZETIA 5 MG PO (08:08)
[2024-02-15] MEDS: BUSPAR 15 MG PO ×2 (08:09→20:27)
[2024-02-15] MEDS: GLUCOTROL 5 MG PO (08:09)
[2024-02-15] MEDS: PROTONIX 40 MG PO (08:09)
[2024-02-15] MEDS: JARDIANCE 25 MG PO (08:09)
[2024-02-15] MEDS: CRESTOR 40 MG PO (08:14)
[2024-02-15] MEDS: NOVOLOG FLEXPEN-MODERATE RESISTANCE SC (08:18)
--- NOTE | 2024-02-15 08:21 | W.PN.CD ---
Today's Communication / Plan
-
lasxi 20mg IV now
eliquis 5mg po bid
stop heparin
records requested
ongoing discussions re GOC.
Impression / Plan
-
Presentation:
77 yo man with hx with end stage CHF with prior hx remote stents,ischemic cardiomyopathy, recent eval for destination LVAD and he declined, AF on eliquis, Pulmonary Fibrosis, prostate CA, and what sounds like FTT over the last several years. He
had an 'arrest' down for 10 minutes before CPR then EMS for another ~5 minutes before ROSC.
Cardiac arrest: current awake and alert with good orientation, after being 'down' for ~15 minutes? wonder if he was just very hypotensive with poor palp pulses, regardless he is awake now without any CP.
-Alert and oriented x 3 today
-suspect PEA arrest
-review of device shows no cardaic arrhytmia or events.
-no pe, trace effusions
-no events on cardiac device interrogation--Reviewed with EP.
HF?rEF:
-EF 32%
-on exam he has cachexia
-report of LVAD eval and declining therapy
-continue his midodrine andand liasix 20mg iv daily for now
Ischemic CMY with BiV ICD;
-will request recent records
-Not on very much GDMT, guessing due to low bp--on chronic Midodrine
-continue with IV lasix 20mg daily
CAD:
-no cp
-don't suspect acute coronary event
-trop slightly up in the setting of 'arrest'.
Type II RI in the setting of cardiac arrest:
-no cp
PAF:
-in sinus with biv pacing currently
-will transition back to Eliquis
We had a discussion about his code status it is DNR. we discussed that he isn't interested in agressive therapy. I broached the topic of palliative care and hopsice as he isn't interested in agressive therapy. He will consider, he has never
considered this before.
Subjective:
He is feeling well, pain in the chest from CPR, no chest pressure. His sob is improved.
Data:
TTE 02/14/24: Moderately reduced left ventricular systolic function. Left ventricular
ejection fraction is 32%, by volumetric assessment.
Global hypokinesis with septal wall akinesis.
Stage II diastolic dysfunction suggestive of abnormal relaxation and increased
filling pressures.
Moderate mitral regurgitation.
No prior study available for comparison.
plans discussed with Dr Colin,
CCT 45 minutes
Physical Exam
Vital Signs/Labs
Vital Signs
Temp Pulse Resp BP Pulse Ox
97.6 F 80 12 96/57 94
02/15/24 07:29 02/15/24 06:30 02/15/24 06:30 02/15/24 06:00 02/14/24 21:00
02/14/24 02/15/24 02/16/24
06:59 06:59 06:59
Actual Weight 61.9 kg 62.6 kg
02/15/24 04:35
02/15/24 04:35
PT 19.6 Sec (11.4-14.6) H 02/14/24 05:08
INR 1.68 02/14/24 05:08
APTT 78.5 Sec (23.4-35.0) H 02/15/24 04:35
Magnesium 1.9 mg/dl (1.6-2.3) 02/14/24 05:08
Triglycerides 75 mg/dl (10-149) 02/14/24 05:08
LDL Cholesterol, Calc 29 mg/dl 02/14/24 05:08
VLDL Cholesterol, Calc 15 mg/dl (0-30) 02/14/24 05:08
HDL Cholesterol 41 mg/dl 02/14/24 05:08
TSH 2.10 uIU/ml (0.47-4.68) 02/13/24 16:38
02/13/24
13:05
Oub-S-Eufdfjxqsra Pept 8060
LAB Results
02/13/24 02/13/24 02/13/24
13:05 18:27 23:02
Troponin I 0.396 H* 0.542 H* D 0.592 H*
02/14/24
21:58
Troponin I 0.227 H*
Physical Exam
Constitutional: No acute distress and Other (cachectic)
Cardiovascular: Rhythm & rate is regular, Pedal edema is absent, JVD pressure is normal, Systolic murmur absent and Diastolic murmur absent
Respiratory: Respiratory effort normal, Lungs clear to auscul., Wheeze Absent and Crackles Absent
Neuro/Psych: AO x 3
Data Reviewed
-
Date of Service: February 15, 2024
Medical Decision Making: Review of Case with other Provider (pacing pvc)
[2024-02-15 08:28] LABS: Glucose - Point of Care 146 mg/dl (70-99)
--- NOTE | 2024-02-15 08:49 | PN.CDI ---
CDI
- -
CDI:
Physician Documentation Request
Admit Date: 02/13/24 16:26
Dear Doctor Cristi,
Clinical Indicators:
Patient admitted with PEA arrest.
02/12 ED Report, 'Epinephrine drip started due to blood pressure dropping as low as systolics in the 50s.'
02/12 Epinephrine gtt 2.5 - 5 mcg/min.
BP on arrival:
02/13/24
13:10
Blood pressure 57/46
Please clarify which of the following is the most likely etiology of the above symptoms and treatment rendered:
Cardiogenic shock
Shock, other
Hypotension only - indicate type/etiology
Other, please specify
Use of terms such as suspected, likely, concern for, or probable (associated with a specific diagnosis that is being evaluated, monitored, or treated as if it exists) are acceptable and can be coded in the inpatient setting, when documented at the
time of discharge.
Thank you,
JOSE Cuellar RN
CDI Specialist
available via tiger text
Please use your independent medical judgment in providing your response.
--- NOTE | 2024-02-15 09:09 | W.PN.URO.CBU ---
Today's Communication / Plan
-
leave myers
Assessment / Plan
-
pt with probaable edema and possible false passage of urethra i used filifoms and followrs and dilated 20 fr then 20 fr coude easily passed and drained 300cc cloudy blood free urine myers left in place Suggest removal once ambulatory
Diagnosis
-
Date of Service: February 15, 2024
-
Patient Diagnosis:
Post Op Day:
Patient Diagnosis:
Urnary retentionwith difficult myers in pt 1 week s/p aquablation for salvage of prostae cancer with psa ricsig post xrt . No voiding problema s ost aqablatio myers out 1 week ago
Post Op Day:
Subjective
-
urologically comfortable with myers
Objective
-
Vital Signs
Temp Pulse Resp BP Pulse Ox
97.6 F 80 12 96/57 94
02/15/24 07:29 02/15/24 06:30 02/15/24 06:30 02/15/24 06:00 02/14/24 21:00
Intake and Output
02/14/24 02/15/24 02/16/24
06:59 06:59 06:59
Intake Total 9754.4 / 9820.4 950.0 / 950.0
Output Total 525 / 525 1894 / 1894
Balance 9229.4 / 9295.4 -944.0 / -944.0
Intake:
Oral fluids 480 / 480
IV fluids (Total) 9754.4 / 9820.4 470.0 / 470.0
Heparin 9100 / 9108.5 212.5 / 212.5
NS 600 / 650 250 / 250
Prop 54.4 / 61.9 7.5 / 7.5
Output:
Urine, Myers 1194 / 1194
Urine, Voided 525 / 525 700 / 700
Other:
How many times incontinent 1
MODERATE amount urine
Laboratory Results
02/15/24 04:35
02/15/24 04:35
Review of Systems
-
: Difficulty Voiding
Physical Exam
-
General - well developed, well nourished, no acute distress
Chest - clear bilaterally
Abdomen - soft, non-tender, positive bowel sounds, no CVAT, no incisional pain or distention
Genitalia - normal
Rectal - normal
Skin - warm & dry with no rash
Neuro - AOx3, no motor deficits
Extremities - no clubbing, no cyanosis, no edema
Incision - clean, dry
Dressing - clean, dry, intact
Care Review
Data Reviewed
Discussed with: Nursing
[2024-02-15] MEDS: ELIQUIS 5 MG PO ×2 (10:52→20:27)
[2024-02-15] MEDS: LASIX 20 MG IV (10:52)
--- NOTE | 2024-02-15 11:02 | W.PN.HOSP.TC ---
Today's Communication/Plan
-
Tx to tele
Assessment / Plan
Assessment / Plan
PEA cardiac arrest. His witnessed him to be SOB, patient went to sit down in the chair and then became unresponsive. She called 911 and he was found by EMS to be pulseless and apneic. He was found to be in PEA on the monitor. He was intubated
by EMS and given 1 mg Epinephrine and regained pulses. He arrives to ED unresponsive and intubated.
Per his and ED notes, he has been more confused recently, more SOB, and having SANCHEZ. He saw a CHF specialist this week and was evaluated for LVAD for which he declined, and the plan was for him to see another specialist at [place]. He had prostate
procedure 1.5 weeks ago for prostate cancer, and was holding Eliquis for this reason, and restarted it night. He fell yesterday (walks w walker and was trying to go bathroom without walker). He told he was not feeling well today, and
choked while eating breakfast (was able to cough up food at that time). He went to sit in walker after eating, and became unresponsive.
ED txt:
Epi gtt stopped, heparin gtt, Levo started, IVF bolus x1, blood cxrs obtained, on ventilator
#PEA cardiac arrest at home, PEA with return of pulses after 1 mg Epinephrine, likely multifactorial due to ischemic cardiomyopathy, end-stage CHF,possible low cardiac output situation/hyptoension during the event, and possible hypoxic event.
#Intubated on scene.
-no indication for acute cardiac catheterization/intervention at this time per Cardiology interventionalist conversation
-Now extubated to [place]
-Off of vasopressors
-interrogate AICD - no shocks
- No tachyarrhythmias
-Neurological improved-alert and oriented. Voicing no headache. No obvious focal neurological deficit.
-CT head no acute stroke, no acute bleed, mild-moderate diffuse cortical and cerebellar atrophy .EEG report pending
# SOB - sec to acute on chronic CHF with reduced EF - cw diuretics per cardiology. Wean oxygen as able.
#Acute hypoxic respiratory insufficiency-CT Chest - no evidence of PE, small partially loculated left-sided pleural effusion with associated compressive atelectasis at the posterior left lung base,mild subpleural interstitial fibrosis bilaterally.No
consolidations . cw diuresis and follow
#A.fib , rate controlled
-Back on Eliquis
-monitor on tele
#DM, was on Ozempic (not currently)
-SSI for now
-monitor glucose closely
- insulin IV if needed
#Prostate cancer s/p procedure
#Melanoma/skin lesions, one over pacemaker pocket, seeing OP Plastics for procedure
#Agent orange exposure in [place],
#Pulmonary fibrosis, history of, not on home oxygen
#There is small partially loculated left-sided pleural effusion with associated compressive atelectasis at the posterior left lung base
-no evidence for acute pulmonary infection, hold off on abx at this time
DVT proph-eliquis
Limited DNR-pt is NO CPR
DW Cardiology toady
Tx to tele
Anticipated Discharge: 24 - 48 hours
Subjective/Interval History
-
Date of Service: February 15, 2024
Today he feels his voice is little hoarse and finding it difficult to articulate. He was extubated yesterday.
No word finding dificulty.
Also feels SOB ;no CP.
No N/V.
Objective Data
-
Labs:
Laboratory Results
02/15/24 02/15/24
00:36 04:35
WBC 12.1 H
Hgb 10.5 L
Hct 35.3 L
Plt Count 209
APTT 88.2 H 78.5 H
Sodium 140
Potassium 3.9
Chloride 103
Carbon Dioxide 31 H
BUN 32 H
Creatinine 0.7
Glucose 132 H
Calcium 8.8
Vital Signs:
Vital Signs
Temp Pulse Resp BP Pulse Ox
97.6 F 85 15 90/51 94
02/15/24 07:29 02/15/24 10:00 02/15/24 09:45 02/15/24 10:00 02/15/24 08:00
I&O
02/14/24 02/15/24 02/16/24
06:59 06:59 06:59
Intake Total 9754.4 / 9820.4 959.5 / 969.0 238.0 / 238.0
Output Total 525 / 525 1894 / 1894
Balance 9229.4 / 9295.4 -934.5 / -925.0 238.0 / 238.0
Review of Systems
-
Constitutional: Denies Fever
Respiratory: Reports Cough and Trouble Breathing
Cardiac: Denies Chest Pain
Neuro: Denies Dizzy
Physical Exam
-
General: No Apparent Distress
HEENT: Moist Mucous Membranes
Respiratory: Crackles (Bibasal); Negative Wheezes
Cardiac: Regular Rhythm and S1/S2
GI: Soft, Nontender, Nondistended and Normal Bowel Sounds
Neuro: AO x 3 and No Motor Deficits; Negative Slurred Speech or Facial Droop
Psych: Calm; Negative Confused
Data Reviewed
-
Labs: Labs Reviewed by me
[2024-02-15 11:43] LABS: Glucose - Point of Care 179 mg/dl (70-99)
--- NOTE | 2024-02-15 11:56 | PTCARENOTE ---
Pt assessed.No change in assessment noted.Dr Hernandez spoke to pt about hospice. This was relayed to pt's .Pt's spoke to her sons and has requsted further information regarding hospice.Dr Colin made aware.
[2024-02-15] MEDS: NOVOLOG FLEXPEN-MODERATE RESISTANCE 1 UNITS SC (12:18)
--- NOTE | 2024-02-15 13:17 | CM ---
CM following re: discharge planning.
Reviewed pt's chart, met with pt. pt's spouse, pt's son Ermias and son Christophe at bedside.
Hospice consult noted. Per family request, CM had a long meeting with the family regarding hospice care, levels of hospice care. Information with emotional support provided. Pt's spouse stated she might not be able to care for pt at home and
information regarding hospice care in a [facility] or an [facility] provided and pt's spouse stated she will discuss it with the rest of the family. Pt's family preferred hospice.
A referral to hospice made.
D/C plan: hospice care with hospice.
CM will follow to assist pt with discharge plan progress
--- NOTE | 2024-02-15 13:26 | HOSPNOTE ---
Spoke at length with spouse and sons. Discussed hospice care and the philosophy. The family would like to meet alone for a few minutes and will most likely agree to hospice care. Equipment will be needed and transport will be needed. Case management
and Attending aware of plan. More information to follow.
[2024-02-15 16:21] LABS: Glucose - Point of Care 219 mg/dl (70-99)
--- NOTE | 2024-02-15 16:46 | PTCARENOTE ---
Pt assessed.No change in assessment noted.Pt stated that he wanted to go home.We had a discussion about discharge to hospice. Pts and extended family at bedside.
--- NOTE | 2024-02-15 16:59 | CHAP ---
[employer] request relayed to Fr. Moyer, client resolution specialist today. He anticipates arriving shortly to provide [facility] as requested.
--- NOTE | 2024-02-15 17:26 | PTCARENOTE ---
Pt and Pt's state that they want to move forward with hospice.manager call center batt machine operator Linette Cruz made aware by tt.
[2024-02-15] MEDS: ZOLOFT 150 MG PO (17:53)
[2024-02-15] MEDS: NOVOLOG FLEXPEN-MODERATE RESISTANCE 3 UNITS SC (17:54)
--- NOTE | 2024-02-15 18:15 | PTCARENOTE ---
Report given to 2 Lavon RN.
--- NOTE | 2024-02-15 19:00 | PTCARENOTE ---
Patient received from the ICU on 4L of O2. Chest pain reported with repositioning otherwise, vitals stable. Spouse and sons at bedside, very attentive and supportive to patient. Patient oriented to room.
[2024-02-15] MEDS: TYLENOL 650 MG PO (20:55)
[2024-02-15] MEDS: AMBIEN 10 MG PO (20:55)
[2024-02-15 21:39] LABS: Glucose - Point of Care 199 mg/dl (70-99)
[2024-02-16] VITALS (7 sets, daily range): BP systolic 89–107; BP diastolic 47–60; BMI 19.1
[2024-02-16 06:36] LABS: Hematocrit 34.7 % (39.0-52.0); Hemoglobin 10.5 g/dL (13.0-18.0); Mean Corp Hgb Conc. 30.3 g/dL (33.0-37.0); Mean Corpuscular Hgb 24.9 pg (27.0-31.0); Mean Corpuscular Volume 82.4 fL (80.0-94.0); Mean Platelet Volume 10.6 fL (7.4-10.4); Platelet Count 222 10^3/uL (130-400); Red Blood Cell Count 4.21 10^6/uL (4.70-6.10); White Blood Cell Count 11.8 10^3/uL (4.8-10.8)
[2024-02-16 07:16] LABS: Blood Urea Nitrogen 26 mg/dl (9-20); Calcium 9.1 mg/dl (8.4-10.2); Carbon Dioxide 32 mmol/L (22-30); Chloride 99 mmol/L (98-107); Estimated Creatinine Clearance 87 ml/min; Glucose 131 mg/dl (70-99); Potassium 4.2 mmol/L (3.5-5.1); Sodium 136 mmol/L (135-145); eGFR > 60.00
--- NOTE | 2024-02-16 08:42 | W.PN.CD ---
Today's Communication / Plan
-
Stop lasix, will try and discuss with primary electron beam welder setter
I discussed my concern that he has lost 100 lbs in 1 year, it appears that he is declining
Impression / Plan
-
Presentation:
77 yo man with hx with end stage CHF with prior hx remote stents,ischemic cardiomyopathy, recent eval for destination LVAD and he declined, AF on eliquis, Pulmonary Fibrosis, prostate CA, and what sounds like FTT over the last several years. He
had an 'arrest' down for 10 minutes before CPR then EMS for another ~5 minutes before ROSC.
Cardiac arrest: current awake and alert with good orientation, after being 'down' for ~15 minutes? wonder if he was just very hypotensive with poor palp pulses, regardless he is awake now without any CP.
-Alert and oriented x 3 today
-suspect PEA arrest
-review of device shows no cardaic arrhytmia or events.
-no pe, trace effusions
-no events on cardiac device interrogation--Reviewed with EP.
HF?rEF:
-EF 32%
-on exam he has cachexia, he tells me ~ 1 year ago he was 220 lbs, he is now ~ 137 lbs
-report of LVAD eval and declining therapy
-continue his midodrine will stop lasix for now, he does not take this at home, he tells me his dry weight is 137 lbs
Ischemic CMY with BiV ICD;
-will request recent records
-Not on very much GDMT, guessing due to low bp--on chronic Midodrine
CAD:
-no cp
-don't suspect acute coronary event
-trop slightly up in the setting of 'arrest'.
Type II CT in the setting of cardiac arrest:
-no cp
PAF:
-in sinus with biv pacing currently
-will transition back to Eliquis
We had a discussion about his code status it is DNR. we discussed that he isn't interested in agressive therapy. I broached the topic of palliative care and hopsice as he isn't interested in agressive therapy. He will consider, he has never
considered this before.
Subjective:
Overall, no new complaints voice is hoarse, memory is foggy
Data:
TTE 02/14/24: Moderately reduced left ventricular systolic function. Left ventricular
ejection fraction is 32%, by volumetric assessment.
Global hypokinesis with septal wall akinesis.
Stage II diastolic dysfunction suggestive of abnormal relaxation and increased
filling pressures.
Moderate mitral regurgitation.
No prior study available for comparison.
plans discussed with Dr Colin,
CCT 45 minutes
Physical Exam
Vital Signs/Labs
Vital Signs
Temp Pulse Resp BP Pulse Ox
98.2 F 98 16 104/60 99
02/16/24 07:45 02/16/24 07:45 02/16/24 07:45 02/16/24 07:45 02/16/24 07:45
02/15/24 02/16/24 02/17/24
06:59 06:59 06:59
Actual Weight 138 lb 0.15 oz 136 lb 9.6 oz
02/16/24 06:05
02/16/24 06:05
PT 19.6 Sec (11.4-14.6) H 02/14/24 05:08
INR 1.68 02/14/24 05:08
APTT 78.5 Sec (23.4-35.0) H 02/15/24 04:35
Magnesium 1.9 mg/dl (1.6-2.3) 02/14/24 05:08
Triglycerides 75 mg/dl (10-149) 02/14/24 05:08
LDL Cholesterol, Calc 29 mg/dl 02/14/24 05:08
VLDL Cholesterol, Calc 15 mg/dl (0-30) 02/14/24 05:08
HDL Cholesterol 41 mg/dl 02/14/24 05:08
TSH 2.10 uIU/ml (0.47-4.68) 02/13/24 16:38
02/13/24
13:05
Zko-A-Bwyhughcjkr Pept 8060
LAB Results
02/13/24 02/13/24 02/13/24
13:05 18:27 23:02
Troponin I 0.396 H* 0.542 H* D 0.592 H*
02/14/24
21:58
Troponin I 0.227 H*
Physical Exam
Constitutional: Other (cachexia and chronically ill appearing )
EENT: Anicteric
Cardiovascular: Rhythm & rate is regular and Pedal edema is absent
Respiratory: Other (decreased b/s b/l with poor air movement b/l )
GI: Soft
Neuro/Psych: Alert and Oriented
Data Reviewed
-
Date of Service: February 16, 2024
EKG: Tracing Personally Visualized and interpreted (a sensed v paced )
Echo: Report Reviewed by me
Labs: Labs Reviewed by me
Total Time Spent with Patient (in minutes): > 40 mins including discussing with home electron beam welder setter
[2024-02-16 08:48] LABS: Glucose - Point of Care 134 mg/dl (70-99)
[2024-02-16] MEDS: NOVOLOG FLEXPEN-MODERATE RESISTANCE SC (09:21)
[2024-02-16] MEDS: FLOMAX 0.400000000000000022 MG PO (09:23)
[2024-02-16] MEDS: JARDIANCE 25 MG PO (09:23)
[2024-02-16] MEDS: ProAmatine 10 MG PO ×3 (09:23→18:17)
[2024-02-16] MEDS: PROTONIX 40 MG PO (09:24)
[2024-02-16] MEDS: GLUCOTROL 5 MG PO (09:24)
[2024-02-16] MEDS: BUSPAR 15 MG PO ×2 (09:24→20:20)
[2024-02-16] MEDS: ELIQUIS 5 MG PO ×2 (09:24→20:20)
[2024-02-16] MEDS: ZETIA 5 MG PO (09:24)
[2024-02-16] MEDS: NEURONTIN 600 MG PO ×2 (09:24→20:19)
--- NOTE | 2024-02-16 09:24 | W.PN.URO.CBU ---
Today's Communication / Plan
-
may remove myers once ambulatory
Assessment / Plan
-
pt with probaable edema and possible false passage of urethra i used filifoms and followrs and dilated 20 fr then 20 fr coude easily passed and drained 300cc cloudy blood free urine myers left in place Suggest removal once ambulatory
Diagnosis
-
Date of Service: February 16, 2024
-
Patient Diagnosis:
Post Op Day:
Patient Diagnosis:
Post Op Day:
Patient Diagnosis:
Urnary retentionwith difficult myers in pt 1 week s/p aquablation for salvage of prostae cancer with psa ricsig post xrt . No voiding problema s ost aqablatio myers out 1 week ago
Post Op Day:
Subjective
-
stable min gu sxs of myers
Objective
-
Vital Signs
Temp Pulse Resp BP Pulse Ox
98.2 F 98 16 104/60 99
02/16/24 07:45 02/16/24 07:45 02/16/24 07:45 02/16/24 07:45 02/16/24 07:45
Intake and Output
02/15/24 02/16/24 02/17/24
06:59 06:59 06:59
Intake Total 959.5 / 969.0 1118.0 / 1118.0
Output Total 1894 / 1894 1860 / 1860
Balance -934.5 / -925.0 -742.0 / -742.0
Intake:
Oral fluids 480 / 480 1080 / 1080
IV fluids (Total) 479.5 / 489.0 38.0 / 38.0
Heparin 222.0 / 231.5 38.0 / 38.0
NS 250 / 250
Prop 7.5 / 7.5
Output:
Urine, Myers 1194 / 1194 1860 / 1860
Urine, Voided 700 / 700
Other:
How many times incontinent 1
MODERATE amount urine
Laboratory Results
02/16/24 06:05
02/16/24 06:05
Review of Systems
-
: Difficulty Voiding and Dark Urine
Physical Exam
-
General - well developed, well nourished, no acute distress
Chest - clear bilaterally
Abdomen - soft, non-tender, positive bowel sounds, no CVAT, no incisional pain or distention
Genitalia - normal
Rectal - normal
Skin - warm & dry with no rash
Neuro - AOx3, no motor deficits
Extremities - no clubbing, no cyanosis, no edema
Incision - clean, dry
Dressing - clean, dry, intact
[2024-02-16] MEDS: LASIX 20 MG IV (09:25)
[2024-02-16] MEDS: CRESTOR 40 MG PO (09:27)
--- NOTE | 2024-02-16 11:57 | W.PN.HOSP.TC ---
Today's Communication/Plan
-
Continue diuretics as able
Continue with oxygen and wean as able
Assessment / Plan
Assessment / Plan
PEA cardiac arrest. His witnessed him to be SOB, patient went to sit down in the chair and then became unresponsive. She called 911 and he was found by EMS to be pulseless and apneic. He was found to be in PEA on the monitor. He was intubated
by EMS and given 1 mg Epinephrine and regained pulses. He arrives to ED unresponsive and intubated.
Per his and ED notes, he has been more confused recently, more SOB, and having SANCHEZ. He saw a CHF specialist this week and was evaluated for LVAD for which he declined, and the plan was for him to see another specialist at [place]. He had prostate
procedure 1.5 weeks ago for prostate cancer, and was holding Eliquis for this reason, and restarted it night. He fell yesterday (walks w walker and was trying to go bathroom without walker). He told he was not feeling well today, and
choked while eating breakfast (was able to cough up food at that time). He went to sit in walker after eating, and became unresponsive.
ED txt:
Epi gtt stopped, heparin gtt, Levo started, IVF bolus x1, blood cxrs obtained, on ventilator
#PEA cardiac arrest at home, PEA with return of pulses after 1 mg Epinephrine, likely multifactorial due to ischemic cardiomyopathy, end-stage CHF,possible low cardiac output situation/hyptoension during the event, and possible hypoxic event.
#Intubated on scene.
-no indication for acute cardiac catheterization/intervention at this time per Cardiology interventionalist conversation
-Now extubated to [place]
-Off of vasopressors
-interrogated AICD - no shocks
- No tachyarrhythmias
-Neurological improved-alert and oriented. Voicing no headache. No obvious focal neurological deficit.
-CT head no acute stroke, no acute bleed, mild-moderate diffuse cortical and cerebellar atrophy .EEG report pending
# SOB - sec to acute on chronic CHF with reduced EF - cw diuretics per cardiology. Wean oxygen as able.BP lower side which is apparently chronic and used midodrine.
#Acute hypoxic respiratory insufficiency-CT Chest - no evidence of PE, small partially loculated left-sided pleural effusion with associated compressive atelectasis at the posterior left lung base,mild subpleural interstitial fibrosis bilaterally.No
consolidations . cw diuresis and follow
#A.fib , rate controlled
-Back on Eliquis
-monitor on tele
#DM, was on Ozempic (not currently)
-SSI for now
-monitor glucose closely
#Prostate cancer s/p procedure
# Urinary retention -Damon placed by [facility] 02/13.Remove once ambulatory
#Melanoma/skin lesions, one over pacemaker pocket, seeing OP Plastics for procedure
#Agent orange exposure in [place],
#Pulmonary fibrosis, history of, not on home oxygen
#There is small partially loculated left-sided pleural effusion with associated compressive atelectasis at the posterior left lung base
-no evidence for acute pulmonary infection, hold off on abx at this time
DVT proph-eliquis
Limited DNR-pt is NO CPR
Patient talks about interest of advanced options of heart failure treatments including cartoid barostim device.
If pt and family wants to pursue further advanced options of heart failure treatments and as he is currently in heart failure 100 mm by hypotension we may have to transfer him to [facility] for further treatments.
Will dw family today.
Discussed with cardiology about above today
Anticipated Discharge: > 48 hours
Subjective/Interval History
-
Date of Service: February 16, 2024
Feels his cognition is slowly improving. He is alert and oriented. He still does not remember details of the acute event and cardiac arrest .
Breathing is labored but improved.
Chest wall sore which he thinks from CPR.
Objective Data
-
Labs:
Laboratory Results
02/16/24
06:05
WBC 11.8 H
Hgb 10.5 L
Hct 34.7 L
Plt Count 222
Sodium 136
Potassium 4.2
Chloride 99
Carbon Dioxide 32 H
BUN 26 H
Creatinine 0.6 L
Glucose 131 H
Calcium 9.1
Vital Signs:
Vital Signs
Temp Pulse Resp BP Pulse Ox
98.6 F 98 16 103/55 99
02/16/24 11:05 02/16/24 11:05 02/16/24 11:05 02/16/24 11:05 02/16/24 11:05
I&O
02/15/24 02/16/24 02/17/24
06:59 06:59 06:59
Intake Total 959.5 / 969.0 1118.0 / 1118.0
Output Total 189 / 1894 1860 / 1860
Balance -934.5 / -925.0 -742.0 / -742.0
Review of Systems
-
Constitutional: Denies Fever
Abdomen/GI: Denies Abdominal Pain, Nausea or Vomiting
Neuro: Denies Dizzy
Physical Exam
-
General: No Apparent Distress
HEENT: Moist Mucous Membranes
Respiratory: Crackles (Few basal crackles BL) and Non Labored Respirations; Negative Wheezes or Accessory Resp Muscle Use
Cardiac: Regular Rhythm and S1/S2
GI: Soft
Musculoskeletal: No Edema
Neuro: AO x 3
Psych: Calm; Negative Confused
Data Reviewed
-
Labs: Labs Reviewed by me
[2024-02-16 13:01] LABS: Glucose - Point of Care 182 mg/dl (70-99)
--- NOTE | 2024-02-16 13:01 | HOSPNOTE ---
Spoke with patient and family about hospice and the philosophy. The plan is for equipment to be delivered in the am and to have patient transported home via ambulance. OOH DNR needed on chart and case management and attending aware. Once patient is
home will sign onto hospice services.
[2024-02-16] MEDS: ATIVAN 0.5 MG PO (13:06)
[2024-02-16] MEDS: NOVOLOG FLEXPEN-MODERATE RESISTANCE 1 UNITS SC (13:06)
--- NOTE | 2024-02-16 14:20 | CM ---
Addendum entered by Michelle Melendez RN 02/16/24 14:36:
IMM signed and placed on chart.
Original Note:
Reviewed the chart notes. Patient to be discharged tomorrow to home with Hospice following. CM continues to be available to patient/family and is monitoring medical plan for needs at discharge.
Plan: Discharge to home tomorrow on hospice.
[2024-02-16 16:49] LABS: Glucose - Point of Care 226 mg/dl (70-99)
[2024-02-16] MEDS: ZOLOFT 150 MG PO (18:17)
[2024-02-16] MEDS: NOVOLOG FLEXPEN-MODERATE RESISTANCE 3 UNITS SC (18:18)
[2024-02-16 21:27] LABS: Glucose - Point of Care 225 mg/dl (70-99)
[2024-02-16] MEDS: AMBIEN 10 MG PO (21:30)
[2024-02-17 03:29] VITALS: BP 121/58
[2024-02-17 06:43] LABS: Hematocrit 34.4 % (39.0-52.0); Hemoglobin 10.3 g/dL (13.0-18.0); Mean Corp Hgb Conc. 29.9 g/dL (33.0-37.0); Mean Corpuscular Hgb 24.7 pg (27.0-31.0); Mean Corpuscular Volume 82.5 fL (80.0-94.0); Platelet Count 237 10^3/uL (130-400); Red Blood Cell Count 4.17 10^6/uL (4.70-6.10); Red Cell Dist. Width 15.8 % (11.5-14.5); White Blood Cell Count 12.2 10^3/uL (4.8-10.8)
[2024-02-17 07:00] LABS: Blood Urea Nitrogen 26 mg/dl (9-20); Calcium 8.9 mg/dl (8.4-10.2); Carbon Dioxide 38 mmol/L (22-30); Chloride 95 mmol/L (98-107); Estimated Creatinine Clearance 79 ml/min; Glucose 142 mg/dl (70-99); Potassium 4.2 mmol/L (3.5-5.1); Sodium 138 mmol/L (135-145); eGFR > 60.00
[2024-02-17 07:27] LABS: Glucose - Point of Care 141 mg/dl (70-99)
[2024-02-17 07:50] VITALS: BP 109/56
--- NOTE | 2024-02-17 08:51 | W.HF.CON ---
Heart Failure
- LV Function
Left ventricular function study result: LV Ejection fraction </= 35%
Ejection Fraction Percentage: 32
- ARNI
Patient already on ARNI: No
Heart Failure ARNI Contraindication: Comfort Measures Only, Hypotension
- ACEI/ARB
Patient already on ACEI/ARB: No
Heart Failure ACEI/ARB Contraindication: Comfort Measures Only, Hypotension
- Beta Linda
Patient already on Evidence Based Beta Linda: No
Heart Failure Evidence Based Beta Linda: Comfort Measures Only, Hypotension, Mod/Severe Heart Failure
- Mineralocorticord Receptor Antagonist
Patient already on MRA: No
Heart Failure MRA Contraindication: Comfort Measures Only, Hypotension
- SGLT-2 Inhibitor
Patient already on SGLT-2 Inhibitor: Yes
- Afib Anticoagulation
Patient already on Anticoagulation for Afib: Yes
- NYHA CHF Classification
NYHA CHF Classification Level: Class III - Symptoms w/ min exertion, interferes w/ nml daily activity (pt will be discharged on hospice)
- ACC/AHA Stage
ACC/AHA Stage: Stage C: Symptomatic Heart Failure
[2024-02-17] MEDS: NOVOLOG FLEXPEN-MODERATE RESISTANCE SC (09:15)
[2024-02-17] MEDS: FLOMAX 0.400000000000000022 MG PO (09:50)
[2024-02-17] MEDS: ZETIA 5 MG PO (09:50)
[2024-02-17] MEDS: PROTONIX 40 MG PO (09:52)
[2024-02-17] MEDS: BUSPAR 15 MG PO (09:52)
[2024-02-17] MEDS: JARDIANCE 25 MG PO (09:52)
[2024-02-17] MEDS: LASIX 20 MG IV (09:52)
[2024-02-17] MEDS: GLUCOTROL 5 MG PO (09:52)
[2024-02-17] MEDS: NEURONTIN 600 MG PO (09:52)
[2024-02-17] MEDS: ELIQUIS 5 MG PO (09:53)
[2024-02-17] MEDS: CRESTOR 40 MG PO (09:55)
[2024-02-17] MEDS: ProAmatine 10 MG PO (10:07)
--- NOTE | 2024-02-17 10:33 | W.PN.HOSP.TC ---
Addendum entered and electronically signed by Tuan Colin MD 02/18/24 15:52:
Patient on admission was hypotensive requiring vasopressors suggestive of shock suspected cardiogenic.
Needed Epinephrine drip.
Original Note:
Today's Communication/Plan
-
DC
Assessment / Plan
Assessment / Plan
PEA cardiac arrest. His witnessed him to be SOB, patient went to sit down in the chair and then became unresponsive. She called 911 and he was found by EMS to be pulseless and apneic. He was found to be in PEA on the monitor. He was intubated
by EMS and given 1 mg Epinephrine and regained pulses. He arrives to ED unresponsive and intubated.
Per his and ED notes, he has been more confused recently, more SOB, and having SANCHEZ. He saw a CHF specialist this week and was evaluated for LVAD for which he declined, and the plan was for him to see another specialist at [place]. He had prostate
procedure 1.5 weeks ago for prostate cancer, and was holding Eliquis for this reason, and restarted it night. He fell yesterday (walks w walker and was trying to go bathroom without walker). He told he was not feeling well today, and
choked while eating breakfast (was able to cough up food at that time). He went to sit in walker after eating, and became unresponsive.
ED txt:
Epi gtt stopped, heparin gtt, Levo started, IVF bolus x1, blood cxrs obtained, on ventilator
#PEA cardiac arrest at home, PEA with return of pulses after 1 mg Epinephrine, likely multifactorial due to ischemic cardiomyopathy, end-stage CHF,possible low cardiac output situation/hyptoension during the event, and possible hypoxic event.
#Intubated on scene.
-no indication for acute cardiac catheterization/intervention at this time per Cardiology interventionalist conversation
-Now extubated to [place]
-Off of vasopressors
-interrogated AICD - no shocks
- No tachyarrhythmias
- Neurological improved-alert and oriented. No obvious focal neurological deficit.
-CT head no acute stroke, no acute bleed, mild-moderate diffuse cortical and cerebellar atrophy .EEG report showed no sz.
# SOB - sec to acute on chronic CHF with reduced EF - cw diuretics per cardiology. Wean oxygen as able.BP lower side which is apparently chronic and used midodrine. Patient with chronic hypotension and unable to tolerate any GDMT medications for
heart failure. He was deemed end-stage heart failure and was referred for advanced options of heart failure treatments including LVAD which patient is not interested and also carotid barostim device.
#Acute hypoxic respiratory insufficiency-CT Chest - no evidence of PE, small partially loculated left-sided pleural effusion with associated compressive atelectasis at the posterior left lung base,mild subpleural interstitial fibrosis bilaterally.No
consolidations . cw diuresis and follow
#A.fib , rate controlled
-Back on Eliquis
-monitor on tele
#DM, was on Ozempic (not currently)
-SSI for now
-monitor glucose closely
#Prostate cancer s/p procedure
# Urinary retention -Damon placed by [facility] 02/13.Remove once ambulatory
#Melanoma/skin lesions, one over pacemaker pocket, seeing [facility] for procedure
#Agent orange exposure in [place],
#Pulmonary fibrosis, history of, not on home oxygen
#There is small partially loculated left-sided pleural effusion with associated compressive atelectasis at the posterior left lung base
-no evidence for acute pulmonary infection, hold off on abx at this time
Patient prognosis is poor from advanced heart failure. His hemodynamics not permitting heart failure medical treatment. He had progressive decline in his functional ability at home according to family.
There was initial discussion by me earlier and yesterday by cardiology about the prognosis with the family.
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 She and their sons going forward wants goals of care to be comfort;they discussed with hospice and agreed upon hospice at home. Discharge home today on hospice.
discussed with hospice team and everything set up home and could be discharged at 1230 today.
Total time of discharge 40 minutes
Anticipated Discharge: Today
Subjective/Interval History
-
Date of Service: February 17, 2024
Patient today was repeatedly dwelling on events that happened at home and which he is not able to remember.
He is on 4 L of oxygen but denies any shortness of breath. Chest sore.
No nausea or vomiting.
He is confused about the events that happened at home and also what has been done for him in the hospital. Looks bit confusional today to me.
Objective Data
-
Labs:
Laboratory Results
02/17/24
06:13
WBC 12.2 H
Hgb 10.3 L
Hct 34.4 L
Plt Count 237
Sodium 138
Potassium 4.2
Chloride 95 L
Carbon Dioxide 38 H
BUN 26 H
Creatinine 0.7
Glucose 142 H
Calcium 8.9
Vital Signs:
Vital Signs
Temp Pulse Resp BP Pulse Ox
98.5 F 98 18 109/56 99
02/17/24 07:50 02/17/24 10:07 02/17/24 07:50 02/17/24 10:07 02/17/24 07:50
I&O
02/16/24 02/17/24 02/18/24
06:59 06:59 06:59
Intake Total 1118.0 / 1118.0 840 / 840
Output Total 1860 / 1860 3525 / 3525
Balance -742.0 / -742.0 -2685 / -2685
Review of Systems
-
Respiratory: Denies Trouble Breathing
Cardiac: Reports Chest Pain (sore)
Abdomen/GI: Denies Abdominal Pain, Nausea or Vomiting
Neuro: Denies Dizzy
Physical Exam
-
General: No Apparent Distress
HEENT: Moist Mucous Membranes
Respiratory: Non Labored Respirations; Negative Accessory Resp Muscle Use
Cardiac: Regular Rhythm and S1/S2
GI: Soft
Neuro: Awake, Alert and Oriented; Negative No Motor Deficits, Tremors, Slurred Speech or Facial Droop
Psych: Calm and Confused; Negative Agitated
Data Reviewed
-
Labs: Labs Reviewed by me
--- NOTE | 2024-02-17 10:45 | W.DS.TRANS ---
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
-
Discharge Instructions:
Discharge Diagnosis/Procedures PEA cardiac arrest; end stage CHF
Diet Regular
Activity As tolerated
Driving Restrictions No driving
Other Services Hospice
Instructions: *PCP/Other [employer] [facility] Heart Failure Instructions
Stand-Alone Forms:
Changes to Home Medications: Yes
Discharge Medications:
DC Medications w/original date entered in [employer]
apixaban 5 mg tablet (Eliquis) 5 mg PO BID Blood Clot Prevention/Tx 02/13/24
buspirone 15 mg tablet 15 mg PO BID Mental Health/Anxiety 02/13/24
cholecalciferol (vitamin D3) 25 mcg (1,000 unit) tablet (Vitamin D3) 25 mcg PO DAILY Supplement 02/13/24
empagliflozin 25 mg tablet (Jardiance) 25 mg PO DAILY Diabetes 02/13/24
ezetimibe 10 mg tablet (Zetia) 10 mg PO DAILY High Cholesterol 02/13/24
gabapentin 600 mg tablet 300 mg PO DAILY Pain 02/13/24
glipizide 5 mg tablet 5 mg PO DAILY Diabetes 02/13/24
ipratropium bromide 21 mcg (0.03 %) nasal spray 2 spray intranasal BID Congestion 02/13/24
lorazepam 0.5 mg tablet 0.5 mg PO Q6HPRN PRN anxiety 02/13/24
midodrine 10 mg tablet 2.5 mg PO TID Blood Pressure 02/13/24
rosuvastatin 40 mg tablet (Crestor) 40 mg PO MOTUWETHFR High Cholesterol 02/13/24
semaglutide 1 mg/dose (4 mg/3 mL) subcutaneous pen injector (Ozempic) 1 mg SC QWEEK Diabetes 02/13/24
sertraline 50 mg tablet 150 mg PO QPM Mental Health/Anxiety 02/13/24
tamsulosin 0.4 mg capsule (Flomax) 0.4 mg PO QPM Urinary Issue 02/13/24
zolpidem 12.5 mg tablet,extended release,multiphase (Ambien CR) 12.5 mg PO HSPRN PRN sleep 02/13/24
sildenafil 100 mg tablet (Viagra) 100 mg PO DAILY PRN ED 02/15/24
furosemide 20 mg tablet (Lasix) 20 mg PO DAILY #30 tabs 02/17/24
Home Medication Changes
New medication - lasix
Pending Results: No
[2024-02-17] MEDS: TYLENOL 650 MG PO (11:10)
[2024-02-17] MEDS: ATIVAN 0.5 MG PO (11:11)
[2024-02-17 11:26] VITALS: BP 112/60
--- NOTE | 2024-02-17 12:21 | CM ---
Reviewed the chart notes. Patient for discharge to home today on Hospice service. Medical necessity and [id number] DNR forms on chart. Patient will be transported via ambulance.
Plan: Discharge to home on Hospice services.
--- NOTE | 2024-02-17 13:46 | PTCARENOTE ---
Patient was safely discharged on home hospice, via ambulance, accompanied by and 2 sons. Copy of discharge instructions printed and reviewed with spouse (a copy of heart failure packet given to spouse). Per Dr Colin, AICD will be turned off
remotely when patient gets home. Hospice team ([facility]) on board to coordinate process. Damon catheter intact. Emotional support provided to family.
== END 2024-02-17 13:20 | disposition hospice, home (50) | DRG 280 ==
LOC: 2 NORTH 16:26
PROVIDERS: Internal Medicine; Internal Medicine Cardiovascular Disease; Nurse Practitioner Family; ADMITTING PHYSICIAN Internal Medicine; ATTENDING PHYSICIAN Internal Medicine; CONSULT PHYSICIAN Internal Medicine Cardiovascular Disease; CONSULT PHYSICIAN Specialist; EMERGENCY PHYSICIAN Emergency Medicine; FAMILY PHYSICIAN Family Medicine; OTHER PHYSICIAN Internal Medicine Pulmonary Disease; OTHER PHYSICIAN Psychiatry & Neurology Neurology
PROC: 5A1935Z Respiratory Ventilation, Less than 24 Consecutive Hours (ICD-10-PCS; 2024-02-13)
DX: I50.23 Acute on chronic systolic (congestive) heart failure (principal); G92.8 Other toxic encephalopathy; I21.A1 Myocardial infarction type 2; R57.0 Cardiogenic shock; I46.2 Cardiac arrest due to underlying cardiac condition; J90 Pleural effusion, not elsewhere classified; J98.11 Atelectasis; I25.5 Ischemic cardiomyopathy; E11.9 Type 2 diabetes mellitus without complications; I48.0 Paroxysmal atrial fibrillation; Z79.01 Long term (current) use of anticoagulants; Z66 Do not resuscitate; J84.10 Pulmonary fibrosis, unspecified; I50.84 End stage heart failure
CPT/HCPCS: 36600; 70450; 71045; 71275; 80048; 80053; 80061; 82805; 82962; 83036; 83605; 83735; 83880; 84100; 84443; 84478; 84484; 85025; 85027; 85610; 85730; 87040; 92610; 93005; 93306; 94002; 94003; 95816; 96361; 96374; 97116; 97163; 97167; 97530; 99291; Q9967